=== PATIENT | female | born 1990 | race Two or more races ===

== ENCOUNTER 2020-12-23 11:00 | Outpatient (RCR) | payer OTHER, SELFPAY ==
[2020-11-05 15:08] VITALS: BP 131/84; PULSE 84; RESP 12
== END 2021-02-16 09:58 | disposition other institution (70) ==
LOC: HO.PT 11:00
PROVIDERS: PCP Family Medicine; Visit Provider Family Medicine
DX: M54.6 Pain in thoracic spine (principal)
CPT/HCPCS: 97014; 97110; 97112; 97140; 97161; 97530

== ENCOUNTER 2021-02-16 08:56 | Outpatient (REF) | payer MEDICAID, SELFPAY ==
--- NOTE | ~2021-02-16 | MR_ITS ---
EXAMINATION: BRAIN MRI WITHOUT CONTRAST CLINICAL INFORMATION: Headaches. COMPARISON: No relevant prior imaging. TECHNIQUE: Multiplanar MR imaging of the brain was performed without contrast. FINDINGS: There is no intracranial mass effect or midline shift. No abnormal extra-axial collection. Lateral and third ventricles are normal. No hydrocephalus. Midline structures including the cervicomedullary junction are normal. No acute bone marrow signal changes. There is no acute territorial infarct. No pathological magnetic susceptibility artifact. Intracranial vascular flow voids are maintained. There is no mastoid middle ear effusion. Mild paranasal sinus disease primarily affecting the ethmoid air cells. Globes and orbits are symmetric. MR/MR head/brain wo con IMPRESSION: Unremarkable brain MRI.
--- NOTE | ~2021-02-16 | MR_ITS ---
EXAMINATION: MR SHOULDER WITHOUT CONTRAST, LEFT CLINICAL INFORMATION: Left shoulder pain. COMPARISON: Left shoulder radiographs dated 07/12/2019. TECHNIQUE: Multisequence MR imaging of the left shoulder was obtained without contrast on a high-field strength scanner. FINDINGS: ROTATOR CUFF: [id number] supraspinatus and infraspinatus tendinosis without a measurable rotator cuff tendon defect. No muscle atrophy or fatty infiltration. BICEPS: Normal. CORACOACROMIAL ARCH: The undersurface of the acromion is minimally curved with mild lateral downsloping. Minimal acromioclavicular osteoarthritis. Trace fluid within the subacromial-subdeltoid bursa, consistent with minimal bursitis. LABRUM/CAPSULE: Normal. GLENOHUMERAL JOINT/MARROW: Normal. MR/MR shoulder LT wo con IMPRESSION: 1. [id number] supraspinatus and infraspinatus tendinosis without a measurable tendon defect. 2. Minimal acromioclavicular osteoarthritis with lateral downsloping of the acromion. 3. Minimal subacromial-subdeltoid bursitis.
== END 2021-02-16 08:57 | disposition home or self-care (01) ==
LOC: HO.MRI 08:56
PROVIDERS: Visit Provider Family Medicine
DX: R51.9 Headache, unspecified (principal); M25.512 Pain in left shoulder
CPT/HCPCS: 70551; 73221

== ENCOUNTER → 2021-03-03 10:57 | Outpatient (BNVA) | payer MEDICAID, SELFPAY | PROVIDERS: Visit Provider Orthopaedic Surgery | DX: M25.311 Other instability, right shoulder (principal); M25.312 Other instability, left shoulder | CPT/HCPCS: 99202 ==

== ENCOUNTER 2022-02-26 20:33 | Emergency (ER) | payer MEDICAID, SELFPAY ==
[2022-02-26 20:51] VITALS: BP 149/88; PULSE 88; RESP 18; TEMP 36.4; O2SAT 99; BMI 26.4
--- NOTE | 2022-02-26 21:32 | ED_ITS ---
HPI - Allergic Reaction General Chief complaint: Allergic Reaction Stated complaint: allergic reaction Source: patient Mode of arrival: ambulatory Limitations: no limitations History of Present Illness HPI narrative: 31-year-old female presents with full body itching that started on . Unknown what is causing her allergic reaction as she has not been exposed to any new products or eaten any new foods. She took Benadryl yesterday which did not relieve her itching. MD complaint: allergic reaction Onset (ago): day(s) (3) Exposure: unknown Symptoms: itching Severity: moderate Treatment prior to arrival: benadryl Previous Allergic Reaction History: none Related Data Previous Rx's Medication Instructions Recorded prednisone 20 mg tablet 40 mg PO DAILY 6 Days #12 tab 02/26/22 Allergies Allergy/AdvReac Type Severity Reaction Status Date / Time No Known Allergies Allergy Verified 02/26/22 20:51 Review of Systems Review of Systems: Constitutional: No Fever, No Chills ENT/Mouth: No Ear Pain, No Hoarseness, No sore throat Eyes: No Eye Pain, No Swelling, No Redness, No Foreign Body Cardiovascular: No Chest Pain, No SOB Respiratory: No Cough, No Dyspnea Gastrointestinal: No Nausea, No Vomiting, No Diarrhea, No abdominal Pain Genitourinary: No Dysuria, No Hematuria Musculoskeletal: No joint pain, No Myalgias, No Joint Swelling Skin: No Skin lacerations, positive rash Neuro: No Weakness, No Numbness, No Paresthesias, No Loss of Consciousness, No Dizziness, No Headache Psych: No Anxiety/Panic, No Depression Heme/Lymph: no easy bruising, no Lymphadenopathy Endocrine: No Polyuria, No Polydipsia Yes all other systems are reviewed and are negative [facility] Past Medical History Attestation statement: The following information was validated with the patient. Source: old records reviewed Social History Social History Alcohol intake: never Advance Directives: No Advance Directives Information Provided: Yes Patient : No Current occupational status: unemployed Current occupation: right handed Physical Exam ED Vital Signs: Vital Signs - 24 hr 02/26/22 20:51 Temperature 97.6 F Pulse Rate 88 Respiratory Rate 18 Blood Pressure 149/88 H Pulse Oximetry 99 BMI result Body Mass Index 26.4 Appearance: Alert. Oriented X3. No acute distress. Eyes: Pupils equal, round and reactive to light. ENT: Pharynx normal. Neck: Normal inspection. Neck supple. CVS: Normal heart rate and rhythm. Pulses normal. Respiratory: No respiratory distress. Lung sounds clear to auscultation all lobes. No tracheal stridor. Abdomen: Soft and nontender. Skin: Erythema and diffuse rash noted chest and abdomen. Skin warm and dry. Normal skin color. Normal skin turgor. Extremities: No lower extremity edema. Gait well-balanced well coordinated. Neuro: No motor deficit. No sensory deficit. Cranial nerves 2-12 intact. Course Course Course Narrative: 31-year-old female presents with urticaria to chest neck and abdomen. Has had rash for approximately 3 days. Unknown what the allergen is. Has been taking Benadryl with poor effect. Patient has even unlabored respirations, no tracheal stridor, able to manage secretions. Speaking in complete sentences, even unlabored respirations, vital signs are stable and within normal limits. Will order p.o. prednisone. Will have patient follow-up with primary care physician for allergy testing. Patient verbalized understanding of and agrees to plan of care to discharge home. Verbalized understanding of signs and symptoms indicating need for emergent intervention MDM - Allergic Reaction Differential Diagnosis Differential diagnosis: Likely allergic reaction, contact dermatitis, viral enanthem and urticaria Medical Records Attestation: I reviewed the patient's medical records. Discharge Plan Discharge Clinical Impression: Allergic reaction, Urticaria Patient Disposition: Home, Self-Care Instructions: Urticaria (ED), General Allergic Reaction (ED) Additional Instructions: You were evaluated for allergic reaction. You must follow-up with your primary care for allergy testing. Please take prednisone 40 mg for the next 6 days. Start this medication on 02/27/2022. We gave you your 1st dose in the emergency department. Please continue to take Benadryl as needed for itching. Please follow-up with primary care physician and/or dermatology for skin check. Have the moles looked at on the left side and left arm. Thank you for choosing this emergency department for evaluation. Please follow-up with primary care physician as needed. Return to the emergency department for any new, concerning, or worsening symptoms. Prescriptions: New prednisone 20 mg tablet 40 mg PO DAILY 6 Days Qty: 12 0RF Referrals: Jayla Prather MD [Primary Care Provider] - Interventions: ED Discharge Assessment Last Done: 02/26/22 22:28 Discharge Date/Time: 02/26/22 22:30
[2022-02-26] MEDS: predniSONE 20 MG TABLET 40 MG PO (22:24)
== END 2022-02-26 22:30 | disposition home or self-care (01) ==
PROVIDERS: Emergency Provider Internal Medicine; PCP Family Medicine
DX: L50.0 Allergic urticaria (principal)
CPT/HCPCS: 99283

== ENCOUNTER → 2022-04-15 15:41 | Outpatient (BNVA) | payer MEDICAID, SELFPAY | PROVIDERS: PCP Family Medicine; Visit Provider Internal Medicine Endocrinology, Diabetes & Metabolism | DX: R79.89 Other specified abnormal findings of blood chemistry (principal) | CPT/HCPCS: 99202 ==

== ENCOUNTER 2023-07-04 15:23 | Outpatient (REF) | payer SELFPAY ==
--- NOTE | ~2023-07-04 | XR_ITS ---
EXAMINATION: XR HIP, RIGHT CLINICAL INFORMATION: Right hip pain, worsening. COMPARISON: None available. TECHNIQUE: Two views of the right hip. FINDINGS: No fracture or dislocation. The hip is well aligned. Joint space maintained. The right hemipelvis is intact. Normal bowel gas pattern. XR/XR hip RT min 2V IMPRESSION: Normal right hip.
== END 2023-07-04 15:24 | disposition home or self-care (01) ==
LOC: HO.HHCX 15:23
PROVIDERS: Visit Provider Family Medicine
DX: M25.551 Pain in right hip (principal)
CPT/HCPCS: 73502

== ENCOUNTER 2023-08-04 07:55 | Outpatient (AMB) | payer OTHER, SELFPAY ==
--- NOTE | 2023-08-04 08:04 | MHC.OFFVIS ---
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 She describes her pain as sharp in nature. She did injure her right shoulder approximately 1 year ago while lifting a heavy object. Since that time her symptoms have gotten worse. She has done physical therapy for 12 weeks over the last 6 months which aggravated her pain. She has also tried Tylenol and anti-inflammatory medicines which gave her minimal relief. She has had cortisone injections in the past which gave her no relief. Patient reports weakness when lifting the right hand above shoulder height. 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 Physical Exam Const Other: Well-nourished well-developed very friendly female awake alert and oriented x3 in no acute distress Extrem Other: Bilateral upper extremity examination shows good capillary refill, no skin lesions noted, normal sensation light touch Right shoulder examination shows almost full range of motion when compared to her left shoulder, 4+ out of 5 strength with supraspinatus testing, positive impingement signs, tenderness over her acromioclavicular joint Results Reviewed Results Reviewed: X-rays of the patient's right shoulder show severe acromioclavicular joint narrowing, a type 2 acromion, no acute bony abnormalities Assessment & Plan Assessment & Plan (1) Impingement of right shoulder: Code(s): M25.811 - Other specified joint disorders, right shoulder Plan: Ms. Omar Watts presents with right shoulder pain and weakness due to impingement syndrome, acromioclavicular joint arthritis and possible rotator cuff tearing. Thus, I will send the patient for an MRI of her right shoulder to further evaluate the status of her rotator cuff tendons. I will see her back once the MRI is completed to discuss the findings and treatment options. Feel free to call me at any time should questions regarding her orthopedic management arise. Thank you very much for asking me to see this very friendly patient. I spent 22 minutes in reviewing the patient's records and imaging studies, seeing the patient and documenting in the medical record. Orders: Orders MR shoulder RT wo con Today M25.811 - Other specified joint disorders, right shoulder Coding Level of Care Code Est Pt Level 2 (41502) Diagnoses Impingement of right shoulder M25.811
== END 2023-08-04 08:33 | disposition home or self-care (01) ==
PROVIDERS: PCP Family Medicine; Visit Provider Orthopaedic Surgery
DX: M25.811 Other specified joint disorders, right shoulder (principal)
CPT/HCPCS: 99212

== ENCOUNTER → 2023-08-04 07:55 | Outpatient (BNVA) | payer MEDICAID, SELFPAY | PROVIDERS: PCP Family Medicine; Visit Provider Orthopaedic Surgery ==

== ENCOUNTER 2023-09-12 13:05 | Outpatient (REF) | payer OTHER, SELFPAY ==
--- NOTE | ~2023-09-12 | MR_ITS ---
EXAMINATION: MR SHOULDER WITHOUT CONTRAST, RIGHT CLINICAL INFORMATION: Right shoulder pain. COMPARISON: None available. TECHNIQUE: MRI of the shoulder without contrast was performed on a high-field scanner. FINDINGS: ROTATOR CUFF: Lobulated focus of low T1/low T2 signal within the distal aspect of the posterior infraspinatus tendon measuring up to 0.7 cm, consistent with calcific tendinitis. Minimal supraspinatus, infraspinatus, and subscapularis tendinosis. No measurable rotator cuff tendon tear. No muscle atrophy or fatty infiltration. BICEPS: Intact. CORACOACROMIAL ARCH: The undersurface of the acromion is minimally curved with mild lateral downsloping. Minimal acromioclavicular arthrosis. Trace edema within the subacromial-subdeltoid bursa, consistent with minimal bursitis. LABRUM/CAPSULE: No labral tear. Intact joint capsule. GLENOHUMERAL JOINT/MARROW: Unremarkable. MR/MR shoulder RT wo con IMPRESSION: 1. Distal infraspinatus calcific tendinitis. Minimal supraspinatus, infraspinatus, and subscapularis tendinosis. No measurable rotator cuff tendon tear. 2. Minimal acromioclavicular arthrosis with lateral downsloping of the acromion. 3. Minimal subacromial-subdeltoid bursitis.
== END 2023-09-12 13:06 | disposition home or self-care (01) ==
LOC: HO.MRI 13:05
PROVIDERS: PCP Family Medicine; Visit Provider Orthopaedic Surgery
DX: M25.811 Other specified joint disorders, right shoulder (principal)
CPT/HCPCS: 73221

== ENCOUNTER 2023-10-03 08:22 | Outpatient (AMB) | payer OTHER, SELFPAY ==
--- NOTE | 2023-10-03 08:30 | A.OFFVIS_ITS ---
Intake Vital Signs 10/03/23 08:32 Height 5 ft 1 in Intake Visit Reasons: ov- MRI Shoulder RT review Intake Note: Elina is a 32 year old female who presents today for an MRI review of her right shoulder. She reports mild to moderate discomfort along the lateral aspect of her right shoulder. She has done stretching exercises which gave her minimal relief. She reports mild weakness when lifting her right hand above shoulder height. 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 Const Other: Well-nourished well-developed very friendly female awake alert and oriented x3 in no acute distress Extrem Other: Bilateral upper extremity examination shows good capillary refill, no skin lesions noted, normal sensation light touch Right shoulder examination shows almost full range of motion when compared to her left shoulder, 5/5 strength with supraspinatus testing, positive impingement signs, tenderness over her acromioclavicular joint, no instability Results Reviewed Results Reviewed: MRI of the patient's right shoulder shows moderate to severe acromioclavicular joint narrowing, a type 2 acromion, signal change within the supraspinatus tendon most likely due to rotator cuff tendinosis Assessment & Plan Assessment & Plan (1) Impingement of right shoulder: Code(s): M25.811 - Other specified joint disorders, right shoulder Plan Ms. Omar Watts presents with right shoulder pain due to impingement syndrome and acromioclavicular joint arthritis. I had a lengthy discussion with the patient regarding the treatment options. She wishes to hold off on a cortisone injection. I did give her a prescription for a Medrol Dosepak. She will continue with her home stretching program to prevent stiffness. She will follow up with me on an as-needed basis should her symptoms not plateau at an unacceptable level over the next few months. Feel free to call me at any time should questions regarding her orthopedic management arise. I spent 22 minutes in reviewing the patient's records and imaging studies, seeing the patient and documenting in the medical record. Medications: New methylprednisolone (Medrol (Hilario)) PO PER PKG DIR 21 ea 0RF Coding Level of Care Code Est Pt Level 2 (26599) Diagnoses Impingement of right shoulder M25.811
== END 2023-10-03 08:44 | disposition home or self-care (01) ==
PROVIDERS: PCP Family Medicine; Visit Provider Orthopaedic Surgery
DX: M25.811 Other specified joint disorders, right shoulder (principal)
CPT/HCPCS: 99212

== ENCOUNTER → 2023-10-03 08:22 | Outpatient (BNVA) | payer OTHER, SELFPAY | PROVIDERS: PCP Family Medicine; Visit Provider Orthopaedic Surgery ==

== ENCOUNTER 2024-03-11 11:49 | Outpatient (REF) | payer OTHER, SELFPAY ==
[2024-03-11 17:08] LABS: Estimated Average Glucose 114 mg/dL; Hemoglobin A1c % 5.6 % (<6.0)
[2024-03-11 17:24] LABS: TSH reflex Free T4 0.24 uIU/mL (0.32-4.0); Vitamin D 25-OH Total 32.4 ng/mL (>30)
[2024-03-11 19:59] LABS: Free T4 (Free Thyroxine) 1.02 ng/dL (0.71-1.85)
[2024-03-12 09:22] LABS: Hepatitis A Antibody IgG Nonreactive (Nonreactive); ~Hepatitis A Antibody IgG 0.56 S/CO (0.00-0.99)
[2024-03-12 09:23] LABS: HBS Num1 11.15 mIU/mL (0-7.99); HBsAGNum1 0.43 S/CO (0.00-0.99); HIV AB/AG Nonreactive (Nonreactive); HIV Num 1 0.05 S/CO (0.00-0.99); Hepatitis B Core Antibody Nonreactive (Nonreactive); Hepatitis B Surface Antigen Negative (Negative); ~HepC Num1 0.09 S/CO (0.00-0.79); ~Hepatitis C Antibody Nonreactive (Nonreactive)
[2024-03-12 09:48] LABS: Syphilis Screen Nonreactive (Nonreactive)
[2024-03-12 12:55] LABS: HBS Num2 10.87 mIU/mL (0-7.99); HBS Num3 10.64 mIU/mL (0-7.99); ~Hepatitis B Surface Antibody GRAYZONE (Nonreactive)
== END 2024-03-11 11:50 | disposition home or self-care (01) ==
LOC: HO.HHCL 11:49
PROVIDERS: Visit Provider Family Medicine
DX: Z11.3 Encounter for screening for infections with a predominantly sexual mode of transmission (principal); E55.9 Vitamin D deficiency, unspecified; Z83.3 Family history of diabetes mellitus; Z01.84 Encounter for antibody response examination; R00.2 Palpitations
CPT/HCPCS: 36415; 82306; 83036; 84439; 84443; 86704; 86706; 86708; 86780; 86803; 87340; 87389

== ENCOUNTER 2024-03-15 10:24 | Outpatient (REF) | payer OTHER, SELFPAY ==
--- NOTE | ~2024-03-15 | XR_ITS ---
EXAMINATION: XR CERVICAL SPINE XR THORACIC SPINE XR LUMBAR SPINE CLINICAL INFORMATION: Neck pain. Back pain, and lower back pain. COMPARISON: None available. TECHNIQUE: AP, lateral, and open-mouth views of the cervical spine. AP and lateral views of the thoracic spine. AP, lateral, and coned-down view of the lumbar spine. FINDINGS: CERVICAL SPINE: Straightening of the normal cervical lordosis which may be positional or related to muscle spasm. No acute fracture or subluxation. Normal atlantoaxial alignment. No loss of vertebral body or intervertebral disc height. No concerning lytic or blastic osseous lesion. Unremarkable prevertebral soft tissues. No abnormal soft tissue calcification. THORACIC SPINE: Normal vertebral body alignment. The thoracic kyphosis is maintained. No acute fracture or subluxation. No loss of vertebral body or intervertebral disc height. No lytic or blastic osseous lesion. The visualized lungs are clear. LUMBAR SPINE: Normal vertebral body alignment. The lumbar lordosis is maintained. There is Castellvi type IIA transitional anatomy at the lumbosacral junction. No acute fracture or dislocation. No loss of vertebral body height. Mild loss of intervertebral disc height with tiny endplate osteophytes at L5-S1. No concerning lytic or blastic osseous lesion. No abnormal soft tissue calcification. XR/XR thoracic spine 2V IMPRESSION: Cervical spine: Straightening of the normal cervical lordosis which may be positional or related muscle spasm. Thoracic spine: Unremarkable examination. Lumbar spine: Castellvi type IIA transitional anatomy at the lumbosacral junction. Mild degenerative disc disease at L5-S1.
--- NOTE | ~2024-03-15 | XR_ITS ---
EXAMINATION: XR CERVICAL SPINE XR THORACIC SPINE XR LUMBAR SPINE CLINICAL INFORMATION: Neck pain. Back pain, and lower back pain. COMPARISON: None available. TECHNIQUE: AP, lateral, and open-mouth views of the cervical spine. AP and lateral views of the thoracic spine. AP, lateral, and coned-down view of the lumbar spine. FINDINGS: CERVICAL SPINE: Straightening of the normal cervical lordosis which may be positional or related to muscle spasm. No acute fracture or subluxation. Normal atlantoaxial alignment. No loss of vertebral body or intervertebral disc height. No concerning lytic or blastic osseous lesion. Unremarkable prevertebral soft tissues. No abnormal soft tissue calcification. THORACIC SPINE: Normal vertebral body alignment. The thoracic kyphosis is maintained. No acute fracture or subluxation. No loss of vertebral body or intervertebral disc height. No lytic or blastic osseous lesion. The visualized lungs are clear. LUMBAR SPINE: Normal vertebral body alignment. The lumbar lordosis is maintained. There is Castellvi type IIA transitional anatomy at the lumbosacral junction. No acute fracture or dislocation. No loss of vertebral body height. Mild loss of intervertebral disc height with tiny endplate osteophytes at L5-S1. No concerning lytic or blastic osseous lesion. No abnormal soft tissue calcification. XR/XR cervical spine 3V IMPRESSION: Cervical spine: Straightening of the normal cervical lordosis which may be positional or related muscle spasm. Thoracic spine: Unremarkable examination. Lumbar spine: Castellvi type IIA transitional anatomy at the lumbosacral junction. Mild degenerative disc disease at L5-S1.
--- NOTE | ~2024-03-15 | XR_ITS ---
EXAMINATION: XR CERVICAL SPINE XR THORACIC SPINE XR LUMBAR SPINE CLINICAL INFORMATION: Neck pain. Back pain, and lower back pain. COMPARISON: None available. TECHNIQUE: AP, lateral, and open-mouth views of the cervical spine. AP and lateral views of the thoracic spine. AP, lateral, and coned-down view of the lumbar spine. FINDINGS: CERVICAL SPINE: Straightening of the normal cervical lordosis which may be positional or related to muscle spasm. No acute fracture or subluxation. Normal atlantoaxial alignment. No loss of vertebral body or intervertebral disc height. No concerning lytic or blastic osseous lesion. Unremarkable prevertebral soft tissues. No abnormal soft tissue calcification. THORACIC SPINE: Normal vertebral body alignment. The thoracic kyphosis is maintained. No acute fracture or subluxation. No loss of vertebral body or intervertebral disc height. No lytic or blastic osseous lesion. The visualized lungs are clear. LUMBAR SPINE: Normal vertebral body alignment. The lumbar lordosis is maintained. There is Castellvi type IIA transitional anatomy at the lumbosacral junction. No acute fracture or dislocation. No loss of vertebral body height. Mild loss of intervertebral disc height with tiny endplate osteophytes at L5-S1. No concerning lytic or blastic osseous lesion. No abnormal soft tissue calcification. XR/XR lumbar spine 2-3V IMPRESSION: Cervical spine: Straightening of the normal cervical lordosis which may be positional or related muscle spasm. Thoracic spine: Unremarkable examination. Lumbar spine: Castellvi type IIA transitional anatomy at the lumbosacral junction. Mild degenerative disc disease at L5-S1.
== END 2024-03-15 10:25 | disposition home or self-care (01) ==
LOC: HO.HHCX 10:24
PROVIDERS: Visit Provider Internal Medicine
DX: M54.6 Pain in thoracic spine (principal); M54.2 Cervicalgia; M54.50 Low back pain, unspecified; G89.29 Other chronic pain
CPT/HCPCS: 72040; 72070; 72100

== ENCOUNTER 2024-04-01 10:44 | Outpatient (REF) | payer OTHER, SELFPAY ==
[2024-04-01 12:27] LABS: Anion Gap 10 (12-20); Blood Urea Nitrogen 12 mg/dL (9-16); Carbon Dioxide 28 mmol/L (22-29); Chloride 104 mmol/L (96-108); Estimated Glomerular Filt Rate > 60; Glucose Random 145 mg/dL (60-115); Potassium 3.5 mmol/L (3.3-5.1); Sodium 138 mmol/L (135-145)
[2024-04-01 12:37] LABS: Free T4 (Free Thyroxine) 0.96 ng/dL (0.71-1.85); Thyroid Stimulating Hormone 0.13 uIU/mL (0.32-4.0)
[2024-04-02 11:03] LABS: Thyroid Peroxidase Antibodies <1 IU/mL (<9)
== END 2024-04-01 10:45 | disposition home or self-care (01) ==
LOC: HO.HHCL 10:44
PROVIDERS: Internal Medicine; Visit Provider Family Medicine
DX: M54.50 Low back pain, unspecified (principal); G89.29 Other chronic pain; R79.89 Other specified abnormal findings of blood chemistry
CPT/HCPCS: 36415; 80048; 84439; 84443; 86376

== ENCOUNTER 2024-07-04 15:44 | Outpatient (AMB) | payer OTHER, SELFPAY ==
[2024-07-04 15:50] VITALS: BP 110/76; PULSE 83; BMI 28.8
--- NOTE | 2024-07-04 15:50 | A.OFFVIS_ITS ---
Vital Signs 07/04/24 15:50 Height 5 ft 1 in Weight 152 lb 8.958 oz BMI 28.8 BP 110/76 Blood Pressure Location Lt brachial Position Sitting Pulse 83 Pulse Source Pulse Oximeter Intake Visit Reasons: Hyperthyroidism Intake Note: Patient present today for Hyperthyroidism. Flatwork Folder Required: No Accompanied by: Self / Same As Patient Allergies No Known Allergies Allergy (Verified 07/04/24 15:54) Medication List - Last Reconciled 07/04/24 by Justin Sanchez MD diclofenac sodium 1% topical medroxyprogesterone mg IM methylprednisolone (Medrol (Hilario)) PO PER PKG DIR HPI Comments Details: This is a 31-year-old female sent to endocrinology for evaluation of a slightly suppressed TSH level. Free T4 was 1.4 and TSH was 0.35. pt denies any sx of hyperthyroidism such as tremors, wt loss, + palpitations or frequent bm or heat intolerance . She denies any irradiation to the neck. She denies any tenderness in the neck. There is no family history of thyroid disease. Menses have nor been nl. Takes Depo. 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 Thyroid gland measure 15 gms . No nodules or tenderness palpated. There is no cervical adenopathy palpated. Lungs CTA. Heart S1, S2 Reg R/R -M/R/G. Abdominal exam benign. Skin exam reveals absence of dryness or thyroid dermopathy or vitiligo. Nail exam reveals absence of thyroid acropachy or oncholysis. Neurologic exam reveals 2+ reflexes . Muscle Strength is 5/5 proximally. There are no tremors in upper extremities. Assessment & Plan Assessment & Plan (1) Low TSH level: Code(s): R79.89 - Other specified abnormal findings of blood chemistry Plan: This is a 33-year-old female found to have a slightly low TSH level. TSH has remained persistently suppressed. Other possibilities include the presence of mild Graves disease versus toxic nodule versus thyroiditis. She appears to be clinically euthyroid. The plan is to recheck a TSH, free T4, free T3 as well as TRAB antibody and B- HCG. Will also obtain iodine 123 uptake and scan if TSH remains suppressed and antibodies are negative (2) Hyperthyroidism: Code(s): E05.90 - Thyrotoxicosis, unspecified without thyrotoxic crisis or storm Category: Medical Plan: See plan above Orders: Orders Thyroid Stimulating Hormone Today E05.90 - Thyrotoxicosis, unspecified without thyrotoxic crisis or storm Triiodothyronine T3 Free Today E05.90 - Thyrotoxicosis, unspecified without thyrotoxic crisis or storm Free T4 (Free Thyroxine) Today E05.90 - Thyrotoxicosis, unspecified without thyrotoxic crisis or storm Thyrotropin Receptor Antibody Today E05.90 - Thyrotoxicosis, unspecified without thyrotoxic crisis or storm NM thyroid w uptake Today E05.90 - Thyrotoxicosis, unspecified without thyrotoxic crisis or storm HCG Quantitative Today E05.90 - Thyrotoxicosis, unspecified without thyrotoxic crisis or storm Coding Level of Care Code Est Pt Level 3 (66512) Diagnoses Low TSH level R79.89 Hyperthyroidism E05.90
== END 2024-07-04 16:14 | disposition home or self-care (01) ==
PROVIDERS: PCP Family Medicine; Visit Provider Internal Medicine Endocrinology, Diabetes & Metabolism
DX: R79.89 Other specified abnormal findings of blood chemistry (principal); E05.90 Thyrotoxicosis, unspecified without thyrotoxic crisis or storm
CPT/HCPCS: 99213

== ENCOUNTER → 2024-07-04 15:44 | Outpatient (BNVA) | payer OTHER, SELFPAY | PROVIDERS: PCP Family Medicine; Visit Provider Internal Medicine Endocrinology, Diabetes & Metabolism ==

== ENCOUNTER 2024-09-02 10:25 | Outpatient (REF) | payer OTHER, SELFPAY ==
[2024-09-02 12:20] LABS: HCG Quantitative < 2 mIU/mL; Thyroid Stimulating Hormone 0.31 uIU/mL (0.32-4.0)
[2024-09-03 06:59] LABS: Triiodothyronine T3 Free 3.4 pg/mL (2.3-4.2)
[2024-09-05 21:18] LABS: Thyrotropin Receptor Antibody <1.00 IU/L (<=2.00)
== END 2024-09-02 10:26 | disposition home or self-care (01) ==
LOC: HO.HHCL 10:25
PROVIDERS: Visit Provider Internal Medicine Endocrinology, Diabetes & Metabolism
DX: E05.90 Thyrotoxicosis, unspecified without thyrotoxic crisis or storm (principal)
CPT/HCPCS: 36415; 83520; 84439; 84443; 84481; 84702

== ENCOUNTER 2024-10-28 16:21 | Outpatient (REF) | payer OTHER, SELFPAY ==
[2024-10-28 18:36] LABS: Free T4 (Free Thyroxine) 1.04 ng/dL (0.71-1.85); Thyroid Stimulating Hormone 0.82 uIU/mL (0.32-4.0)
== END 2024-10-28 16:22 | disposition home or self-care (01) ==
LOC: HO.HHCL 16:21
PROVIDERS: Visit Provider Internal Medicine Endocrinology, Diabetes & Metabolism
DX: E05.90 Thyrotoxicosis, unspecified without thyrotoxic crisis or storm (principal)
CPT/HCPCS: 36415; 84439; 84443

== ENCOUNTER 2024-11-04 16:20 | Outpatient (AMB) | payer OTHER, SELFPAY ==
--- NOTE | 2024-11-04 16:22 | A.OFFVIS_ITS ---
Vital Signs 11/04/24 16:23 Height 5 ft 1 in Weight 156 lb 4.924 oz BMI 29.5 BP 142/86 H Blood Pressure Location Rt brachial Position Sitting Pulse 73 Pulse Source Pulse Oximeter Intake Visit Reasons: f/u hyperthyroidism-confirmed Intake Note: Patient present today Hyperthyroidism follow up. [employer] Required: No Accompanied by: Self / Same As Patient Allergies No Known Allergies Allergy (Verified 11/04/24 16:24) Medication List - Last Reconciled 11/04/24 by Justin Sanchez MD diclofenac sodium 1% topical medroxyprogesterone mg IM methylprednisolone (Medrol (Hilario)) PO PER PKG DIR HPI Comments Details: This is a 33-year-old female sent to endocrinology for evaluation of a slightly suppressed TSH level. Free T4 was 1.4 and TSH was 0.35. pt denies any sx of hyperthyroidism such as tremors, wt loss, + palpitations or frequent bm or heat intolerance . She denies any irradiation to the neck. She denies any tenderness in the neck. There is no family history of thyroid disease. Menses have nor been nl. Takes Depo. No palpitation , wt loss or tremors . 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 TSH has remained persistently suppressed. Other possibilities include the presence of mild Graves disease versus toxic nodule versus thyroiditis. She appears to be clinically euthyroid. Repeat thyroid function studies were normal The plan is to have the patient returned to the care of her primary care provider and returned back to endocrinology as needed Coding Level of Care Code Est Pt Level 3 (55102) Diagnoses Low TSH level R79.89
[2024-11-04 16:23] VITALS: BP 142/86; PULSE 73; BMI 29.5
== END 2024-11-04 16:32 | disposition home or self-care (01) ==
PROVIDERS: PCP Family Medicine; Visit Provider Internal Medicine Endocrinology, Diabetes & Metabolism
DX: R79.89 Other specified abnormal findings of blood chemistry (principal)
CPT/HCPCS: 99213

== ENCOUNTER → 2024-11-04 16:20 | Outpatient (BNVA) | payer OTHER, SELFPAY | PROVIDERS: PCP Family Medicine; Visit Provider Internal Medicine Endocrinology, Diabetes & Metabolism ==

== ENCOUNTER 2025-02-11 11:22 | Outpatient (REF) | payer SELFPAY ==
--- OUTSIDE RECORDS SUMMARY | 2025-02-11 13:41 | XMS_ITS | Encounter Summary ---
Author Organization [employer] Address [address] [place] [address] 7 [place] [address] Care Team Providers Care Herd Tester Name Role Phone Jayla Prather MD Primary Care Provider [phone] Encounter Details Date Type Department Care Team (Late st Contact Info) Description 09/20/2022 Abstract [facility] [address] [place] [address] ProviderAgata MD Social History Tobacco Use Types Packs/Day Years Used Date Smoking Tobacco: Never Assessed Comments Unknown Sex and Gender Information Value Date Recorded Sex Assigned at Female 08/22/2022 10:18 AM EDT Legal Sex Female 10:18 AM EDT Gender Identity Female 08/22/2022 10:18 AM EDT Sexual Orientation Choose not to disclose 2021 10:18 AM EDT documented as of this encounter Plan of Treatment Upcoming Encounters Date Type Department Care Team (Late st Contact Info) Description 02/21/2025 10:30 AM EDT Clinical Support [address] [address] 03/11/2025 10:30 AM EDT Office Visit [address] [address] Jayla Prather MD [address] [place] [phone] documented as of this encounter Visit Diagnoses Not on filedocumented in this encounter Care Teams Herd Tester Relationship Specialty Start Date End Date Jayla Prather MD [address] [place] [phone] PCP - General Family Medicine 10/23/18 documented as of this encounter
--- OUTSIDE RECORDS SUMMARY | 2025-02-11 13:41 | XMS_ITS | Clinical Summary ---
Author Organization [employer] Address [address] [facility] [address] [place] [address] Care Team Providers Care Shoe Dyer Name Role Phone Jayla Prather MD Primary Care Provider Allergies No known active allergies Medications medroxyPROGESTERo ne (Depo-Provera) 150 MG/ML injectionIndicati ons:Depo-Provera contraceptive status Administer 150 mg IM every 3 months 1 mL 4 02/23/20 23 Active medroxyPROGESTERo ne (Depo-Provera) 150 MG/ML injectionIndicati ons:Depo-Provera contraceptive status TAKE TO DOCTOR'S OFFICE FOR ADMINISTRATION EVERY 3 MONTHS 1 mL 3 11/19/19 25 Active medroxyPROGESTERo ne (Depo-Provera) 150 MG/ML injectionIndicati ons:Encounter for contraceptive management, unspecified type Inject 1 mL (150 mg) into the muscle every 3 (three) months. 1 mL 3 11/22/19 25 Active [facility] every morning or as directed 1 each 12/24/19 25 Active Diclofenac Sodium 1 % gel Apply to affected areas once or twice daily as needed for pain 100 g 1 12/24/19 25 Active cholecalciferol (D3-1000) 25 MCG (1000 UT) capsuleIndication s:Vitamin deficiency Take 1 capsule (25 mcg) by mouth Once per day. 90 capsule 3 12/24/19 25 Active Hospital, Clinic, or Other Facility Administered Medication Ordered Dose Route Frequency Start Date End Date Status medroxyPROGESTERone (Depo-Provera) injection 150 mgIndications:Encounte r for contraceptive management, unspecified type 150 mg IM Every 3 months 11/22/2024 11/17/2025 Acti ve Active Problems Problem Noted Date Diagnosed Date Depression 12/28/2024 Assessment & Plan (12/28/2024 6:48 AM EST): - PHQ9 score 8, GAD7 score 2 - her depression symptoms seem to be manifesting as somatic symptoms - discussed about having therapist for unresolved grief (her trauma and loss of her mother) - patient was able to contract her safety today Elevated BP without diagnosis of hypertension Assessment & Plan (12/28/2024 6:49 AM EST): -Goal BP < 140/90 per JNC-8 and < 130/80 per ACC/AHA guideline (Treatment threshold >=140/90) -Her BP in the clinic is always borderline range -Continue working on lifestyle modifications -Recommended self-monitoring BP. -Follow up in 3-6 mo, sooner if any problem arises - Pt was advised to take home a BP machine. She has FMx of hypertension. 12/23/24 - She is currently on Depo-Provera and will return for BP chek in two months. 12/23/24 Subclinical hyperthyroidism 04/02/2024 Overview (04/02/2024): Referred to assembler wire group Assessment & Plan (12/28/2024 7:03 AM EST): - mildly low TSH - evaluated by [employer] [employer], last seen in Oct 2024 - discharged to primary care as she does not need any medication at this time - continue periodic monitoring Chronic midline low back pain without sciatica 0 03/11/2024 Assessment & Plan (12/28/2024 6:44 AM EST): - last X-ray in February 2024 showed: Castellvi type IIA transitional anatomy at the lumbosacral junction. Mild degenerative disc disease at L5-S1. - continue home stretching exercise program, heat, and topical medication Chronic midline thoracic back pain 03/11/2024 Assessment & Plan (12/28/2024 6:42 AM EST): >>ASSESSMENT AND PLAN FOR THORACIC BACK PAIN WRITTEN ON 03/11/2024 8:07 PM BY ROMELIA SIMONS MD See above Assessment & Plan (12/28/2024 6:43 AM EST): - X-ray was normal in February 2024 - the same plan as for neck pain Neck pain 03/11/2024 Assessment & Plan (12/28/2024 6:29 AM EST): - X-ray in February 2024 - worsened by her occupation - continue practicing good posture, massage, heat, home stretching exercise as needed - continue diclofenac gel Assessment & Plan (12/28/2024 6:22 AM EST): >>ASSESSMENT AND PLAN FOR CERVICAL RADICULOPATHY WRITTEN ON 03/11/2024 8:07 PM BY ROMELIA SIMONS MD Ro meningeal pathology/ ?cord compression? Rx gabapentin 100mg at bedtime, titrate 100mg/w up to 300mg at bedtime + 100mg qam , hold for sedation. Order MRI entire spine, fu with PCP. Family history of diabetes mellitus 04/17/2023 Assessment & Plan (12/28/2024 6:41 AM EST): - annual screening Overweight 04/17/2023 Assessment & Plan (12/23/2024 2:42 PM EST): - discussed that exercising and eating healthier are more important that the actual weight / BMI Assessment & Plan (04/18/2023 6:19 AM EDT): - discussed that exercising and eating healthier are more important that the actual weight / BMI Chronic right shoulder pain 09/27/2022 Overview (09/27/2022): -Evaluated by orthopedist. MRI done. Tried PT. -Appropriate use and rest of R hand / arm. Ergonomic support. -Continue topical diclofenac prn. Assessment & Plan (12/23/2024 10:45 AM EST): - Pt was last evaluated by Orthopedist on Sep 2023. She was offered steroid injections but patient declined. 12/23/24 - Pt states her pain is currently tolerable. Pt will continue with Diclofenac Gel. 12/23/24 Assessment & Plan (07/29/2023 6:24 AM EDT): -Evaluated by orthopedist. MRI done. Tried PT. Pt declines to try PT again -Appropriate use and rest of R hand / arm. Ergonomic support. -Continue topical diclofenac prn. -Encouraged home exercise. -Refer to orthopedist Assessment & Plan (04/18/2023 6:20 AM EDT): -Evaluated by orthopedist. MRI done. Tried PT. Pt declines to try PT again -Appropriate use and rest of R hand / arm. Ergonomic support. -Continue topical diclofenac prn. -Encouraged home exercise. Assessment & Plan (09/27/2022 9:04 AM EST): -Evaluated by orthopedist. MRI done. Tried PT. -Appropriate use and rest of R hand / arm. Ergonomic support. -Continue topical diclofenac prn. Health care maintenance 09/27/2022 Overview (09/27/2022): -Intimate Partner Violence screen negative -PAP done today. Hx abnormal PAP. -Breast health: Average risk for breast cancer. Screening per guideline Assessment & Plan (12/28/2024 6:41 AM EST): -last physical exam 12/23/24 -Intimate Partner Violence screen negative -Cervical cancer screenin09/27/22 PAP NILM Hx abnormal PAP. -Breast health: Average risk for breast cancer. Screening per guideline -Family Planning / Contraception: Depo-Provera -Dental care: Discussed -IZ: Pt declined Tdap/Td, flu, and COVID vaccine today Assessment & Plan (04/18/2023 6:18 AM EDT): -Intimate Partner Violence screen negative -Cervical cancer screenin09/27/22 PAP NILM Hx abnormal PAP. -Breast health: Average risk for breast cancer. Screening per guideline -Family Planning / Contraception: Depo-Provera -Dental care: Discussed -IZ: Pt declined Tdap/Td and COVID vaccine today -Discussed about the importance of practicing healthy lifestyle Assessment & Plan (09/27/2022 9:05 AM EST): -Intimate Partner Violence screen negative -PAP done today. Hx abnormal PAP. -Breast health: Average risk for breast cancer. Screening per guideline Vitamin D deficiency 09/20/2022 Assessment & Plan (12/23/2024 2:41 PM EST): - Pt was seen by [facility] [facility] [employer] for hyperthyroidism. Pt was given reassurance and will be monitored periodically. 12/23/24 - She has Vitamin D deficiency she is on Depo-Provera. 12/23/24 - Currently taking Vitamin D supplements and will resume. 12/23/24 Headache 09/20/2022 Assessment & Plan (12/28/2024 6:45 AM EST): - MRI on 02/16/21 normal - well-controlled at this time - sleep hygiene Assessment & Plan (04/18/2023 6:22 AM EDT): - well-controlled at this time - sleep hygiene History of abnormal cervical Papanicolaou smear 09/20/2022 Assessment & Plan (12/28/2024 6:39 AM EST): - LSIL / VLADISLAV-1 in 2010 - Last cotest in Sep 2022, NILM with negative high-risk HPV Depo-Provera contraceptive status 09/20/2022 Resolved Problems Problem Noted Date Diagnosed Date Resolved Date Right hip pain 07/04/2023 12/23/2024 Assessment & Plan (07/29/2023 6:23 AM EDT): - possible trochanteric bursitis - pt cannot commit to PT, but will work on home exercise program - continue judicious use of ibuprofen - refer to orthopedist Palpitation 09/27/2022 12/23/2024 Overview (09/27/2022): -Hx abnormal TSH -Repeat thyroid function test -Holter monitor in 2017 was mostly normal sinus rhythm; consider repeat study if persistent Assessment & Plan (04/18/2023 6:21 AM EDT): -Improved -Hx abnormal TSH -Repeat thyroid function test -Holter monitor in 2017 was mostly normal sinus rhythm; consider repeat study if she develops recurrent symptom Assessment & Plan (09/27/2022 9:04 AM EST): -Hx abnormal TSH -Repeat thyroid function test -Holter monitor in 2017 was mostly normal sinus rhythm; consider repeat study if persistent Encounters Date Type Department Care Team Description 02/07/[address] [address] Jayla Prather MD Nurse Triage 01/22/[address] [address] Jayla Prather MD 12/23/2024 9:30 AM EST Office Visit [address] [address] Jayla Prather MD Encounter for contraceptive management, unspecified type (Primary Dx); Vitamin D deficiency; Overweight; Elevated BP without diagnosis of hypertension; Chronic right shoulder pain; Subclinical hyperthyroidism; Vitamin deficiency; Dietary counseling; Exercise counseling; Neck pain; Chronic thoracic back pain, unspecified back pain laterality; History of abnormal cervical Papanicolaou smear; Health care maintenance; Family history of diabetes mellitus; Depo-Provera contraceptive status; Chronic midline thoracic back pain; Chronic midline low back pain without sciatica; Nonintractable episodic headache, unspecified headache type; Major depressive disorder, remission status unspecified, unspecified whether recurrent; Routine screening for STI (sexually transmitted infection); Screening for lipid disorders; Screening for diabetes mellitus 12/23/2024 Travel 12/22/2024 Travel 12/18/[address] [address] Daina Muñoz MA chart prep 12/10/2024 Patient Outreach [address] [address] Jayla Prather MD Pre-visit Planning (SDOH Screening negative and Tobacco screening negative) 11/22/2024 10:30 AM EST Clinical Support [facility] [address] [place] [address] Lyly Ackerman RN Encounter for contraceptive management, unspecified type; Depo-Provera contraceptive status 11/22/2024 Travel 11/18/2024 Refill [facility] [address] [place] [address] Jayla Prather MD Depo-Provera contraceptive status 11/15/2024 Travel from Last 3 Months Immunizations Name Administration Dates Next Due DTP 01/20/1995, 2,01/20/1991,1989,04/23/1990 DTaP 11/27/2002, 5,12/23/1991,1990,04/23/1990,1989 HPV, Quadrivalent 08/23/2009,09/24/2008 Hep B, Adolescent or Pediatric 06/13/2003,2002,11/27/2002 Hib (HbOC) 04/22/1991,12/21/1990 Hib (PRP-T) 05/22/1991,01/20/1991 IPV 01/20/1995, 5,01/21/1992,1991,01/20/1991,12/22/1990,04/22/1990 Influenza injectable quadriv alent IIV4 with preservative 07/24/2018 Influenza injectable quadriv alent preservative free 11/21/2016 Influenza, IIV3, injectable 07/29/2011 MMR 01/20/1995, 5,05/22/1991,1990 Pfizer Covid-19 Vaccine 12+ 12/21/2021, 2 TD (adult), 2 Lf tetanus tox oid, preservative free, adsorbed 11/27/2002 Tdap 03/08/2013 Varicella 02/28/2011,11/27/2002 Family History Medical History Relation Name Comments Depression Mother Drea Diabetes type II Mother Drea HIV Mother Drea Hypertension Mother Drea Substance use disorder Mother Drea opioid use disorder Sister Relation Name Status Comments Mother Drea Sister Social History Tobacco Use Types Packs/Day Years Used Date Smoking Tobacco: Never Passive Smoke Exposure: Never Smokeless Tobacco: Never Tobacco Cessation:Counseling Given: Not Answered Alcohol Use Standard Drinks/Week Comments Never 0 (1 standard drink = 0.6 oz pur e alcohol) Alcohol Answer Date Recorded How often do you have a drink containing alcohol ? 2 12/23/2024 Average Number of Drinks Not on file 025 Frequency of Binge Drinking Not on file 12/2024 Depression Answer Date Recorded Patient Health Questionnaire-9 Score 8 12/23/2024 Patient Health Questionnaire-9 Score 8 12/23/2024 Last PHQ-9: Questionnaire Data Not on file 0 12/23/2024 Housing Stability Answer Date Recorded What is your housing situation today? I have maren kumari 12/10/[address] you li ve. Do you have problems with any of the following? None of the above 12/10/2024 Food Insecurity Answer Date Recorded Within the past 12 months, y ou worried that your food would run out before you got money to buy more: Never True 12/10/2024 Within the past 12 months,th e food you bought just didn't last and you didn't have enough money to get more: Never True Transportation Answer Date Recorded In the past 12 months, has l ack of transportation kept you from medical appts, meetings, work or from getting things needed for daily living? No 12/10/2024 Utilities Answer Date Recorded In the past 12 months, has t he electric, gas, oil or water company threatened to shut off services in your home? No 12/10/2024 Depression Answer Date Recorded Patient Health Questionnaire-2 Score 4 12/23/2024 Internet Access Answer Date Recorded Internet Access Q1 Yes 12/10/2024 Internet Access Q2 Not on file 12/10/2024 Comments Unknown Sex and Gender Information Value Date Recorded Sex Assigned at Female 08/22/2022 10:18 AM EDT Legal Sex Female 10:18 AM EDT Gender Identity Female 08/22/2022 10:18 AM EDT Sexual Orientation Choose not to disclose 2021 10:18 AM EDT Last Filed Vital Signs Vital Sign Reading Time Taken Comments Blood Pressure 142/84 12/23/2024 9:52 AM EST Pulse 80 12/23/2024 9:32 AM EST Temperature 37.2 ??C (98.9 ??F) 12/23/2024 9:32 AM ES T Respiratory Rate 18 12/23/2024 9:32 AM EST Oxygen Saturation 98% 12/23/2024 9:32 AM EST Inhaled Oxygen Concentration - - Weight 69.9 kg (154 lb) 12/23/2024 9:32 AM EST Height 154.9 cm (5' 1 ) 12/23/2024 9:32 AM EST Body Mass Index 29.1 12/23/2024 9:32 AM EST Plan of Treatment Upcoming Encounters Date Type Department Care Team (Late st Contact Info) Description 02/21/2025 10:30 AM EDT Clinical Support [facility] [address] [place] [phone] 03/11/2025 10:30 AM EDT Office Visit [facility] [address] [place] [phone] Jayla Prather MD [address] [place] [phone] Health Maintenance Due Date Last Done Comments HPV Vaccines (3 - 3-dose series) 11/15/2009 08/23/2009, 09/24/2008 DTaP/Tdap/Td Vaccines (9 - Td or Tdap) 03/08/2023 03/08/2013, 11/27/2002, 11/27/2002, Additional history exists COVID-19 Vaccine ( season) 2024 12/21/2021, 2021 Influenza Vaccine (#1) 2024 8, 11/21/2016, 07/29/2011 SDOH Screening 12/10/2025 12/10/2024 Alcohol/Substance Use Screening 12/23/2025 12/23/2024 Depression Screening 12/23/2025 12/23/2024, 12/24/19 25 Tobacco Screening 12/23/2025 12/23/2024 Family Planning (PISQ) 12/28/2025 12/28/2024 Cervical Cancer Screening 09/29/2027 HPV/Cotest 09/29/2027 09/29/2022, 120 02/2022, 08/27/2019 Pap Smear 09/29/2027 09/29/2022, 09/26/2022 Zoster Vaccines (1 of 2) 2039 RSV Patients and Patients Aged 60 years or older (1 - 1-dose 75+ series) 2064 HIB Vaccines Completed 05/22/1991, 0 10/1990, 01/20/1991, Additional history exists IPV Vaccines Completed 01/20/1995, 11/1994, 01/21/1992, Additional history exists Hepatitis B Vaccines Completed 06/13/2003, 12/30/2002, 11/27/2002 HIV Screening Completed 03/11/2024, 03/24, 10/20/2020 Hepatitis C Screening Completed 03/11/2024, 020 Hepatitis A Vaccines Aged Out No long er eligible based on patient's age to complete this topic Meningococcal Vaccine Aged Out No aman remberto eligible based on patient's age to complete this topic Pneumococcal Vaccine: Pediatrics (0 to 5 Years) and At-Risk Patients (6 to 49) Years) Aged Out No longer eligible based on patient's age to complete this topic RSV under 20 months Aged Out No longe r eligible based on patient's age to complete this topic Rotavirus Vaccines Aged Out No longer eligible based on patient's age to complete this topic Procedures Procedure Name Priority Date/Time Associated Diagnosis Comments HEPATITIS C AB W/REFL TO HCV RNA, QN, PCR Routine 03/11/2024 12:00 AM EDT Routine screening for STI (sexually transmitted infection) HIV 1/2 ANTIGEN/ANTIBODY, FOURTH GENERATION W/RFL Routine 03/11/2024 12:00 AM EDT Routine screening for STI (sexually transmitted infection) HM PAP/HPV Routine 09/29/2022 from Last 3 Months or Most Recently Relevant to Health Maintenance Results * Hepatitis C Antibody with Reflex to HCV, RNA, Quantitative, Real-Time PCR (03/11/2024 12:00 AM EDT) Hepatitis C Antibody Nonreactive Nonreactive [facility] Comment:Antibodies to HCV no t detected; does not exclude early acuteHCV infection. Blood Venous blood specimen / Unknown 03/11/2024 03/11/2024 Jayla Prather MD LAB BLOOD ORDERABLES Final Resul t Performing Organization Address City/[facility]/ZIP Co de Phone Number [facility] [address] [place] [address] [phone] * HIV-1/2 Antigen and Antibodies, Fourth Generation, with Reflexes (03/11/2024 12:00 AM EDT) HIV AB/AG Nonreactive Nonreactive [facility] Comment:HIV-1 p24 Ag and/or HIV-1/HIV-2 Ab not detected.A test result that is nonreactive does not exclude thepossibility of exposure to or infection with HIV-1 and/orHIV-2. Nonreactive results in this assay for individualswith prior exposure to HIV-1 and/or HIV-2 may be due toantigen and antibody levels that are below the limit ofdetection of this assay.The [employer] HIV Ag/Ab Combo assay result andsupplemental assay results should be interpreted inconjunction with the patient's clinical presentation,history and other laboratory results. If the results areinconsistent with clinical evidence, additional testing issuggested to confirm the result. Blood Venous blood specimen / Unknown 03/11/2024 03/11/2024 Jayla Prather MD LAB BLOOD ORDERABLES Final Resul t Performing Organization Address City/[facility]/ZIP Co de Phone Number [facility] [address] [place] [address] [phone] * Hm Pap Smear (09/29/2022) Pap Negative for intraephithelial lesion or malignancy Negative for intraephithelial lesion or malignancy, Other HPV Undetected Jayla Prather MD HEALTH MAINTENANCE Final Result from Last 3 Months or Most Recently Relevant to Health Maintenance Insurance * Guarantor: Elina Alejandre Account Type Relation to Patient Date of Phone Billing Address Personal/Family Self [address] [place] Care Teams Shoe Dyer Relationship Specialty Start Date End Date Jayla Prather MD [address] [place] [address] PCP - General Family Medicine 10/23/18
--- OUTSIDE RECORDS SUMMARY | 2025-02-11 13:41 | XMS_ITS | Encounter Summary ---
Author Organization [id number] Address [address] [facility] 7t [place] [address] Care Team Providers Care Corn Sheller Operator Name Role Phone Jayla Prather MD Primary Care Provider [phone] Reason for Visit * Reason Onset Date Comments Nurse Triage 06/19/2023 Encounter Details Date Type Department Care Team ([facility] st Contact Info) Description 06/19/2023 Telephone [facility] MEDICINE [address] [place], [place] [phone] Jayla Prather MD [address] [place], [place] [phone] Nurse Triage Social History Tobacco Use Types Packs/Day Years Used Date Smoking Tobacco: Never Passive Smoke Exposure: Never Smokeless Tobacco: Never Alcohol Use Standard Drinks/Week Comments Never 0 (1 standard drink = 0.6 oz pur e alcohol) Depression Answer Date Recorded Patient Health Questionnaire-2 Score 0 09/26/2022 Comments Unknown Sex and Gender Information Value Date Recorded Sex Assigned at Female 08/22/2022 10:18 AM EDT Legal Sex Female 10:18 AM EDT Gender Identity Female 08/22/2022 10:18 AM EDT Sexual Orientation Choose not to disclose 2021 10:18 AM EDT documented as of this encounter Miscellaneous Notes * Telephone Encounter - Deborah Richardson RN - 06/19/2023 11:58 AM EDT Triage call Pt reports chronic right shoulder and now right hip pain is getting worse. PT reports not taking anything for pain. Pt did take ibuprofen once which was helpful but, doesn't like to take pain medication all the time. Pt is having some increased pain with ambulation and mobility is restricted at times. Pt requests to see PCP. Apt with PCP Yamilka 07/04/23 @ 300pm Insurance is verified as active prior to booking. Multiple (2) protocols were used on this call. Disposition for Call: See in Office or Video Visit within 2 Weeks Protocol Used: Shoulder Pain (Adult) Protocol-Based Disposition: See in Office or Video Visit within 2 Weeks Video visit not offered Positive Triage Question: * Shoulder pain is a chronic symptom (recurrent or ongoing AND present > 4 weeks) * All higher-acuity triage questions were negative Care Advice Discussed: * Reassurance and Education - Shoulder Pain * Pain Medicines * Pain Medicines - Extra Notes and Warnings * Reasons To Call Back - Chest pain or difficulty breathing occurs - Moderate pain (e.g., interferes with normal activities) lasts over 3 days - Mild pain lasts over 7 days - You become worse * Use a Cold Pack for Pain * Use Heat on Area After 48 Hours Protocol Used: Hip Pain (Adult) Protocol-Based Disposition: See in Office or Video Visit within 2 Weeks Video visit not offered Positive Triage Question: * Hip pain is a chronic symptom (recurrent or ongoing AND present > 4 weeks) * All higher-acuity triage questions were negative Care Advice Discussed: * Reassurance and Education - Hip Pain * Pain Medicines * Reasons To Call Back - Moderate pain (e.g., limping) lasts more than 3 days - Mild pain lasts more than 7 days - Signs of infection occur (e.g., spreading redness, warmth, fever) - You become worse * Use a Cold Pack for Pain * Use Heat on Area After 48 Hours * Telephone Encounter - Nehemiah Butt - 06/19/2023 11:35 AM EDT Symptom: Pain - Severe Outcome: Schedule an urgent appointment (within 1 hour) or talk to a nurse or provider soon Reason: Caller denied all higher acuity questions The caller accepted this outcome Pt states she is having hip pain and shoulder pain Please contact pt at [phone] documented in this encounter Plan of Treatment Upcoming Encounters Date Type Department Care Team (Late st Contact Info) Description 02/21/2025 10:30 AM EDT Clinical Support [address] [address] 03/11/2025 10:30 AM EDT Office Visit [address] [address] Jayla Prather MD [address] [place] [phone] documented as of this encounter Visit Diagnoses Not on filedocumented in this encounter Care Teams Corn Sheller Operator Relationship Specialty Start Date End Date Jayla Prather MD [address] [place] [phone] PCP - General Family Medicine 10/23/18 documented as of this encounter
--- OUTSIDE RECORDS SUMMARY | 2025-02-11 13:41 | XMS_ITS | Encounter Summary ---
Author Organization [employer] Address [address] [facility] 7t [place] [address] Care Team Providers Care Slate Splitting Supervisor Name Role Phone Jayla Prather MD Primary Care Provider [phone] Encounter Details Date Type Department Care Team ([facility] Contact Info) Description 03/11/2024 Orders Only [facility] MEDICINE [address] [place], [place] [phone] Jayla Prather MD [address] [place], [place] [phone] Family history of diabetes mellitus (Primary Dx); Vitamin D deficiency; Palpitation; Routine screening for STI (sexually transmitted infection); Immunity status testing; Low TSH level Social History Tobacco Use Types Packs/Day Years Used Date Smoking Tobacco: Never Passive Smoke Exposure: Never Smokeless Tobacco: Never Alcohol Use Standard Drinks/Week Comments Never 0 (1 standard drink = 0.6 oz pur e alcohol) Housing Stability Answer Date Recorded What is your housing situation today? I have maren kumari 08/07/[address] you li ve. Do you have problems with any of the following? None of the above 08/07/2023 Food Insecurity Answer Date Recorded Within the past 12 months, y ou worried that your food would run out before you got money to buy more: Never True 08/07/2023 Within the past 12 months,th e food you bought just didn't last and you didn't have enough money to get more: Never True Transportation Answer Date Recorded In the past 12 months, has l ack of transportation kept you from medical appts, meetings, work or from getting things needed for daily living? No 08/07/2023 Utilities Answer Date Recorded In the past 12 months, has t he electric, gas, oil or water company threatened to shut off services in your home? No 08/07/2023 Depression Answer Date Recorded Patient Health Questionnaire-2 [...] Description 02/21/2025 10:30 AM EDT Clinical Support [facility] MEDICINE [address] [place] [phone] 03/11/2025 10:30 AM EDT Office Visit [facility] MEDICINE [address] [place] [phone] Jayla Prather MD [address] [place] [phone] Scheduled Orders Name Type Priority Associated Diagnoses Orde r Schedule Chlamydia/N. Gonorrhoeae RNA, TMA, Urogenitial Microbiology Routine Routine screening for STI (sexually transmitted infection) Expected: 03/11/2024 (Approximate), Expires: 03/11/2025 documented as of this encounter Procedures Procedure Name Priority Date/Time Associated Diagnosis Comments THYROID PEROXIDASE ANTIBODIES Routine 04/01/2024 10:45 AM EDT Low TSH level TSH Routine 04/01/2024 10:45 AM EDT Low TSH level T4, FREE Routine 04/01/2024 10:45 AM EDT Low TSH level HEMOGLOBIN A1C Routine 03/11/2024 12:11 PM EDT Family history of diabetes mellitus SYPHILIS SCREEN Routine 03/11/2024 11:00 AM EDT Routine screening for STI (sexually transmitted infection) VITAMIN D,25-OH,TOTAL,IA Routine 03/11/2024 12:00 AM EDT Vitamin D deficiency TSH W/REFLEX TO FT4 Routine 03/11/2024 1 2:00 AM EDT Palpitation HEPATITIS C AB W/REFL TO HCV RNA, QN, PCR Routine 03/11/2024 12:00 AM EDT Routine screening for STI (sexually transmitted infection) HEPATITIS A ANTIBODY, TOTAL Routine 03/11/2024 12:00 AM EDT Immunity status testing HEPATITIS B SURFACE ANTIGEN, EIA Routine 03/11/2024 12:00 AM EDT Routine screening for STI (sexually transmitted infection) HEPATITIS B CORE AB TOTAL Routine 03/11/2024 12:00 AM EDT Routine screening for STI (sexually transmitted infection) HIV 1/2 ANTIGEN/ANTIBODY, FOURTH GENERATION W/RFL Routine 03/11/2024 12:00 AM EDT Routine screening for STI (sexually transmitted infection) HEPATITIS B SURFACE ANTIBODY, QUALITATIVE Routine 03/11/2024 12:00 AM EDT Routine screening for STI (sexually transmitted infection) T4, FREE Routine 03/11/2024 12:00 AM EDT Family history of diabetes mellitus documented in this encounter Results * Thyroid Peroxidase Antibodies (04/01/2024 10:45 AM EDT) Thyroid Peroxidase Antibodies <1 <9 IU/mL [facility] Comment:THIS TEST WAS PERFOR MED AT:[employer] [address] [id number] FUNG MD Blood Venous blood specimen / Unknown 04/01/2024 10:45 AM EDT 04/01/2024 11:40 AM EDT us Jayla Prather MD LAB BLOOD ORDERABLES Final Resul t Performing Organization Address [place] [facility] de Phone Number [facility] [address] [place] [phone] * (ABNORMAL) TSH (04/01/2024 10:45 AM EDT) Thyroid Stimulating Hormone 0.13(L) 0.32 - 4.0 uIU/mL [facility] Comment:TSH 3rd Generation ( [facility]) Blood Venous blood specimen / Unknown 04/01/2024 10:45 AM EDT 04/01/2024 11:38 AM EDT Jayla Prather MD LAB BLOOD ORDERABLES Final Resul t Performing Organization Address [facility] Co de Phone Number [facility] [address] [place] [phone] * T4, Free (04/01/2024 10:45 AM EDT) Free T4 (Free Thyroxine) 0.96 0.71 - 1.85 ng/dL [facility] Blood Venous blood specimen / Unknown 04/01/2024 10:45 AM EDT 04/01/2024 11:38 AM EDT Jayla Prather MD LAB BLOOD ORDERABLES Final Resul t Performing Organization Address [place] [facility] Co de Phone Number [facility] [address] [place] [phone] * Hemoglobin A1c (03/11/2024 12:11 PM EDT) Hemoglobin A1c 5.6 <6.0 % [facility] Comment:Hemoglobin A1C Refer ence Range Adults: 4.8 - 6.0 % Non diabetic: < 6.0 % Goal: < 7.0 %Additional Action Suggested: > 8.0 %Note: Hemoglobin A1c results are invalid for patients with abnormal amounts of HbF. Blood transfusions may impact the HbA1c concentration in the patient sample. Estimated Average Glucose 114 mg/dL [facility] Comment:eAG = Estimated ave rage glucose which is %A1C expressed asaverage glucose, using the formula of the H0K-EaasguqGzkakwa Glucose study (ADAG), Diabetes Care, Vol.31,#8,May. 2007 Blood Venous blood specimen / Unknown 03/11/2024 12:11 PM EDT 03/11/2024 4:22 PM EDT Jayla Prather MD LAB BLOOD ORDERABLES Final Resul t Performing Organization Address [place] [facility]/ZIP Co de Phone Number [facility] [address] [place] [phone] * Syphilis Screen (03/11/2024 11:00 AM EDT) Syphilis Screen Nonreactive Nonreactive [facility] Blood 03/11/2024 11:0 0 AM EDT 03/11/2024 4:22 PM EDT Jayla Prather MD LAB BLOOD ORDERABLES Final Resul t Performing Organization Address [place] [facility] Co de Phone Number [facility] [address] [place] [phone] * T4, Free (03/11/2024 12:00 AM EDT) Free T4 (Free Thyroxine) 1.02 0.71 - 1.85 ng/dL [facility] 03/11/2024 03/11/2024 Jayla Prather MD LAB BLOOD ORDERABLES Final Resul t Performing Organization Address [place] [facility] Co de Phone Number [facility] [address] [place] [phone] * (ABNORMAL) TSH with Reflex to Free T4 (03/11/2024 12:00 AM EDT) TSH reflex Free T4 0.24(L) 0.32 - 4.0 uIU/mL [facility] Blood 03/11/2024 03/11/2024 Jayla Prather MD LAB BLOOD ORDERABLES Final Resul t Performing Organization Address [place] [facility] Co de Phone Number [facility] [address] [place] [phone] * Vitamin D, 25-Hydroxy, Total, Immunoassay (03/11/2024 12:00 AM EDT) Vitamin D 25-OH Total 32.4 >30 ng/mL [facility] Comment:Health Based Referen ce Values*< 20 ng/mL Okbhxfxfx38-69 ng/mL Insufficient> 30 ng/mL Sufficient*Ollie BONNER. N Engl J Med. 2007;357:266-280Care must be taken in interpreting Vitamin D results fromdifferent laboratories and methodologies. Published datademonstrated that results from patients undergoinghemodialysis may show a negative bias when tested withvarious automated 25-OH vitamin D assays when compared toLC-MS/MS.When testing samples from patients whose predominant form ofVitamin D is Vitamin D2, such as patients receiving VitaminD2 supplementation, results that are subtherapeutic shouldbe confirmed with another method such as LC-MS/MS. Blood Venous blood specimen / Unknown 03/11/2024 03/11/2024 Jayla Prather MD LAB BLOOD ORDERABLES Final Resul t [facility] [address] [place] [phone] * Hepatitis A Antibody, Total (03/11/2024 12:00 AM EDT) Hepatitis A Antibody IgG Nonreactive Nonreactive [facility] Blood Venous blood specimen / Unknown 03/11/2024 03/11/2024 Jayla Prather MD LAB BLOOD ORDERABLES Final Resul t Performing Organization Address [place] [facility]/ZIP Co de Phone Number [facility] [address] [place] [phone] * Hepatitis B surface antigen, EIA (03/11/2024 12:00 AM EDT) Hepatitis B Surface Ag Negative Negative [facility] Blood Venous blood specimen / Unknown 03/11/2024 03/11/2024 Jayla Prather MD LAB BLOOD ORDERABLES Final Resul t Performing Organization Address [facility] de Phone Number [facility] [address] [place] [phone] * HIV-1/2 Antigen and Antibodies, Fourth Generation, with Reflexes (03/11/2024 12:00 AM EDT) [facility] HIV AB/AG Nonreactive Nonreactive [facility] Comment:HIV-1 p24 Ag and/or HIV-1/HIV-2 Ab not detected.A test result that is nonreactive does not exclude thepossibility of exposure to or infection with HIV-1 and/orHIV-2. Nonreactive results in this assay for individualswith prior exposure to HIV-1 and/or HIV-2 may be due toantigen and antibody levels that are below the limit ofdetection of this assay.The [employer] HIV Ag/Ab Combo assay result andsupplemental assay results should be interpreted inconjunction with the patient's clinical presentation,history and other laboratory results. If the results areinconsistent with clinical evidence, additional testing issuggested to confirm the result. Blood Venous blood specimen / Unknown 03/11/2024 03/11/2024 Jayla Prather MD LAB BLOOD ORDERABLES Final Resul t Performing Organization Address [place] [facility]/ZIP Co de Phone Number [facility] [address] [place] [phone] * Hepatitis B Core Antibody, Total (03/11/2024 12:00 AM EDT) Hepatitis B Core Antibody Nonreactive Nonreactive [facility] Blood Venous blood specimen / Unknown 03/11/2024 03/11/2024 Jayla Prather MD LAB BLOOD ORDERABLES Final Resul t Performing Organization Address [facility] de Phone Number [facility] [address] [place] [phone] * Hepatitis B Surface Antibody, Qualitative (03/11/2024 12:00 AM EDT) ~Hepatitis B Surface Antibody GRAYZONE Nonreactive [facility] Comment:GRAYZONE: 8.00 mIU/m L TO 11.99 mIU/mLTHE IMMUNE STATUS OF THE INDIVIDUAL SHOULD BE FURTHERASSESSED BY CONSIDERING OTHER FACTORS, SUCH CLINICALSTATUS, FOLLOW-UP TESTING, ASSOCIATED RISK FACTORS, AND THEUSE OF ADDITIONAL DIAGNOSTIC INFORMATION. Blood Venous blood specimen / Unknown 03/11/2024 03/11/2024 Jayla Prather MD LAB BLOOD ORDERABLES Final Resul t Performing Organization Address [facility] de Phone Number [facility] [address] [place] [phone] * Hepatitis C Antibody with Reflex to HCV, RNA, Quantitative, Real-Time PCR (03/11/2024 12:00 AM EDT) Hepatitis C Antibody Nonreactive Nonreactive [facility] Comment:Antibodies to HCV no t detected; does not exclude early acuteHCV infection. Blood Venous blood specimen / Unknown 03/11/2024 03/11/2024 Jayla Prather MD LAB BLOOD ORDERABLES Final Resul t Performing Organization Address [place] [facility] Co de Phone Number [facility] [address] [place] [phone] documented in this encounter Visit Diagnoses Diagnosis Family history of diabetes mellitus- Primary Vitamin D deficiency Palpitation Palpitations Routine screening for STI (sexually transmitted infection) Screening examination for venereal disease Immunity status testing Antibody response examination Low TSH level documented in this encounter Care Teams Slate Splitting Supervisor Relationship Specialty Start Date End Date Jayla Prather MD [address] [place] [phone] PCP - General Family Medicine 10/23/18 documented as of this encounter
--- OUTSIDE RECORDS SUMMARY | 2025-02-11 13:41 | XMS_ITS | Encounter Summary ---
Demographics Address [address] [place] [address] Home Phone Preferred Language Sinhala Marital Status Unknown Cheondoism Affiliation Unknown Race White Ethnic Group Unknown Author Organization [facility] Address [address] [place] [address] Phone Care Team Providers Care Store Promoter Name Role Phone Unavailable Primary Care Provider Unavailabl e Encounter Details Date Type Department Care Team (Late st Contact Info) Description 06/08/2017 Conversion Encounter [facility] [address] [place] [address] Social History Tobacco Use Types Packs/Day Years Used Date Smoking Tobacco: Never Assessed Comments Unknown Sex and Gender Information Value Date Recorded Sex Assigned at Not on file Legal Sex Female 4:11 PM EDT Gender Identity Not on file Sexual Orientation Not on file documented as of this encounter Plan of Treatment Not on file documented as of this encounter Visit Diagnoses Not on filedocumented in this encounter
--- OUTSIDE RECORDS SUMMARY | 2025-02-11 13:41 | XMS_ITS | Encounter Summary ---
Author Organization [email or web address] Address [address] [facility] 7t [place] [address] Care Team Providers Care Surface Plate Inspector Name Role Phone Jayla Prather MD Primary Care Provider [phone] Reason for Visit * Reason Onset Date Comments Nurse Triage 02/07/2025 Encounter Details Date Type Department Care Team ([facility] st Contact Info) Description 02/07/2025 Telephone [facility] MEDICINE [address] [place], [place] [phone] Jayla Prather MD [address] [place], [place] [phone] Nurse Triage Social History Tobacco Use Types [...] encounter Miscellaneous Notes * Telephone Encounter - Fouzia Grier RN - 02/08/2025 8:48 AM EDT Pt walked into [facility] regarding below message. Pt does not have any Sx of STI, no known exposure. Just wants routine STI testing. Explained that since she is not symptomatic, we usually advise [facility] which is not open today. Explained that we can book her an appt in [facility] but the lab [facility] is not open on Saturdays and with her not having Sx the appt wouldn't be for anything other than to order the labs and she would have to come back on Monday to get them done or go to [facility]. Pt is disappointed, she was under the impression that she would be able to come in on Monday and have labs ordered and get them done immediately. Apologized for the inconvenience. [facility] also closed today. Pt declined [facility] appt. Informed that routine STI testing was ordered last month and is outstanding. Can go to [facility] lab today before 11am or can come in Monday between 8:30-4:50. Ptstates will come Monday. * Telephone Encounter - Damari Martinez RN - 02/07/2025 2:32 PM EDT Call returned to Elina Nelson Mac to triage below. Denies any symptoms, no vaginal discharge, odor or rash. No uriinary sx. Pt is just looking for STI testing. As had unprotected intercourse. Advised can walk into [facility] building today before 4pm or into [facility] today or tomorrow . Reviewed [facility] operating hours and that wait times vary. Reviewed home care advise, ER precautions and reasons to call back. Pt agrees Protocol Used: STI Exposure (Adult) Protocol-Based Disposition: See in Office or Video Visit within 3 Days Positive Triage Question: * Patient is worried they have a sexually transmitted infection (STI) * All higher-acuity triage questions were negative Care Advice Discussed: * Reassurance and Education - STIs * STIs - Symptoms * Reasons To Call Back - You have more questions * Reassurance and Education - Preventing STIs * Male Condoms * Female Condoms * Reasons To Call Back - You have more questions * Telephone Encounter - Katarina Rey - 02/07/2025 2:25 PM EDT Symptom: Vaginal Symptoms - Not Bleeding Outcome: Schedule an appointment to be seen within 24 hours Reason: Caller denied all higher acuity questions The caller accepted this outcome. [phone] documented in this encounter Plan of Treatment Upcoming Encounters Date Type Department Care Team (Late st Contact Info) Description 02/21/2025 10:30 AM EDT Clinical Support [address] [address] 03/11/2025 10:30 AM EDT Office Visit [address] [place] [address] Jayla Prather MD [address] [place] [address] documented as of this encounter Visit Diagnoses Not on filedocumented in this encounter Additional Health Concerns Assessment Noted Time PHQ-9 Depression Total Score: 8 12/24/19 25 9:39 AM EST documented as of this encounter Care Teams Surface Plate Inspector Relationship Specialty Start Date End Date Jayla Prather MD [address] [place] [phone] PCP - General Family Medicine 10/23/18 documented as of this encounter
--- OUTSIDE RECORDS SUMMARY | 2025-02-11 13:41 | XMS_ITS | Clinical Summary ---
Author Organization [facility] Address [address] [place] [address] Phone Care Team Providers Care Chancellor Name Role Phone Unavailable Primary Care Provider Unavailabl e Immunizations Immunization Administration Dates Next Due DTP 01/20/1995, 2,01/20/1991,1989,04/23/1990 Hep B, ped/adol 06/13/2003,12/30/2002,11/27/2002 Hib (PRP-T) 05/22/1991,01/20/1991 IPV 01/20/1995, 2,01/20/1991,1989 MMR 01/20/1995,05/22/1991 Td (adult) (MBL), 2 Lf tetan us toxoid, PF, adsorbed 11/27/2002 Varicella 11/27/2002 Social History Tobacco Use Types Packs/Day Years Used Date Smoking Tobacco: Never Assessed Comments Unknown Sex and Gender Information Value Date Recorded Sex Assigned at Not on file Legal Sex Female 4:11 PM EDT Gender Identity Not on file Sexual Orientation Not on file Plan of Treatment Health Maintenance Due Date Last Done Comments DTaP,Tdap,and Td Vaccines (6 - Tdap) 11/28/2002 11/27/2002, 01/20/1995, 01/21/1992, Additional history exists Varicella Vaccines (2 of 2 - 2-dose childhood series) 02/19/2003 11/27/2002 Influenza Vaccines (#1) 2024 COVID-19 Vaccine ( season) 2024 HIB Vaccines Completed 05/22/1991, 01/20/1991 IPV Vaccines Completed 01/20/1995, 12/23, 01/20/1991, Additional history exists MMR Vaccines Completed 01/20/1995, 05/22/1991 Hepatitis B Vaccines Completed 06/13/2003, 12/30/2002, 11/27/2002 HPV Vaccines Aged Out No longer eligi ble based on patient's age to complete this topic Hepatitis A Vaccines Aged Out No long er eligible based on patient's age to complete this topic Men B Vaccine Aged Out No longer elig ible based on patient's age to complete this topic Meningococcal Vaccine Aged Out No aman remberto eligible based on patient's age to complete this topic Pneumococcal Vaccine Aged Out No long er eligible based on patient's age to complete this topic
--- OUTSIDE RECORDS SUMMARY | 2025-02-11 13:41 | XMS_ITS | Encounter Summary ---
Author Organization [employer] Address [address] [facility] 7t [place] [address] Care Team Providers Care Plastic Joint Maker Name Role Phone Jayla Prather MD Primary Care Provider [phone] Reason for Referral * Consultation (Routine) - Closed Specialty Diagnoses / Procedures Referred By Contac t Referred To Contact Endocrinology Diagnoses Abnormal TSH Jayla Prather MD [address] [place] [address] Phone: tel: fax: [facility] Endocrinology [address] [place], [place] Phone: tel: fax: Referral ID Status Reason Start Date Expiration Date V isits Requested Visits Authorized [id number] Closed Specialty Services Required 04/02/2024 04/02/2025 1 1 Encounter Details Date Type Department Care Team (Late st Contact Info) Description 04/02/2024 Orders Only [facility] [address] [place], [place] [phone] Jayla Prather MD [address] [place], [place] [phone] Abnormal TSH (Primary Dx) Social History Tobacco Use Types Packs/Day Years [...] Description 02/21/2025 10:30 AM EDT Clinical Support [facility] [address] [place] [address] 03/11/2025 10:30 AM EDT Office Visit [facility] [address] [place] [address] Jayla Prather MD [address] [place] [address] Scheduled Referrals Name Type Priority Associated Diagnoses Order Schedule Referral to Endocrinology Outpatient Referral Routine Abnormal TSH Expected: 04/02/2024 (Approximate), Expires: 04/02/2025 documented as of this encounter Visit Diagnoses Diagnosis Abnormal TSH- Primary documented in this encounter Care Teams Plastic Joint Maker Relationship Specialty Start Date End Date Jayla Prather MD [address] [place] [address] PCP - General Family Medicine 10/23/18 documented as of this encounter
--- OUTSIDE RECORDS SUMMARY | 2025-02-11 13:41 | XMS_ITS | Encounter Summary ---
Author Organization [employer] Address [address] [facility] 7t [place] [address] Care Team Providers Care Web Consultant Name Role Phone Jayla Prather MD Primary Care Provider [phone] Encounter Details Date Type Department Care Team (Latest Contact Info) Description 04/24/2019 Abstract [facility] CONVERSIONS Dental, Provider, DDS Social History Tobacco Use Types Packs/Day Years [...] Upcoming Encounters Date Type Department Care Team ( st Contact Info) Description 02/21/2025 10:30 AM EDT Clinical Support [facility] MEDICINE [address] [place] [address] 03/11/2025 10:30 AM EDT Office Visit [facility] MEDICINE [address] [place] [address] Jayla Prather MD [address] [place] [address] documented as of this encounter Visit Diagnoses Not on filedocumented in this encounter Care Teams Web Consultant Relationship Specialty Start Date End Date Jayla Prather MD [address] [place], [place] [phone] PCP - General Family Medicine 10/23/18 documented as of this encounter
[2025-02-11 13:47] LABS: Estimated Average Glucose 111 mg/dL; Hemoglobin A1C 125.7657 umol/L; Hemoglobin A1c % 5.5 % (<6.0); Total Hemoglobin (HGBA1C) 3436.2595 umol/L
[2025-02-11 14:04] LABS: Alanine Aminotransferase 45 U/L (0-31); Albumin Level 4.5 g/dL (3.5-5.0); Alkaline Phosphatase 44 U/L (39-117); Anion Gap 11 (12-20); Aspartate Amino Transferase 34 U/L (5-31); Bilirubin Total 0.2 mg/dL (0.0-1.0); Blood Urea Nitrogen 13 mg/dL (9-16); Calcium 9.2 mg/dL (8.4-10.2); Carbon Dioxide 25 mmol/L (22-29); Chloride 108 mmol/L (96-108); Cholesterol 151 mg/dL (<200); Estimated Glomerular Filt Rate > 60; Glucose Random 97 mg/dL (60-115); HDL Cholesterol 31 mg/dL (>40); LDL Cholesterol Calculated 88 mg/dL (<100); Sodium 140 mmol/L (135-145); Total Protein 7.7 g/dL (6.5-8.0); Triglycerides 161 mg/dL (<150)
[2025-02-11 14:08] LABS: TSH reflex Free T4 0.83 uIU/mL (0.32-4.0); Vitamin D 25-OH Total 36.6 ng/mL (>30)
[2025-02-11 15:58] LABS: CT PCR NOT DETECTED (Not Detect.); NG PCR NOT DETECTED (Not Detect.)
[2025-02-11 16:05] LABS: Reflex LDLD? No
[2025-02-12 08:36] LABS: HBsAGNum1 0.31 S/CO (0.00-0.99); HIV AB/AG Nonreactive (Nonreactive); HIV Num 1 0.08 S/CO (0.00-0.99); Hepatitis B Surface Antigen Negative (Negative); ~HepC Num1 0.08 S/CO (0.00-0.79); ~Hepatitis C Antibody Nonreactive (Nonreactive)
[2025-02-12 08:48] LABS: Syphilis Screen Nonreactive (Nonreactive)
== END 2025-02-11 11:23 | disposition home or self-care (01) ==
LOC: HO.HHCL 11:22
PROVIDERS: Visit Provider Family Medicine
DX: E05.90 Thyrotoxicosis, unspecified without thyrotoxic crisis or storm (principal); Z83.3 Family history of diabetes mellitus; Z13.1 Encounter for screening for diabetes mellitus; R03.0 Elevated blood-pressure reading, without diagnosis of hypertension; E55.9 Vitamin D deficiency, unspecified; Z13.220 Encounter for screening for lipoid disorders
CPT/HCPCS: 80053; 80061; 82306; 83036; 84443; 86780; 86803; 87340; 87389; 87491; 87591

== ENCOUNTER 2025-05-09 08:14 | Outpatient (REF) | payer OTHER, SELFPAY ==
--- NOTE | ~2025-05-09 | US_ITS ---
EXAMINATION: US COMPLETE ABDOMEN WITH LIVER ELASTOGRAPHY CLINICAL INFORMATION: Transaminitis. COMPARISON: None available. TECHNIQUE: Real-time imaging of the abdominal viscera. Noninvasive ultrasound liver fibrosis assessment is performed using Corrine ElastPQ point quantification shear wave elastography (pSWE) with a C5-2 MHz transducer. Multiple elastography samples are obtained. FINDINGS: PANCREAS: The visualized pancreatic head and body are normal in appearance. The remainder of the pancreas is obscured from visualization by the overlying bowel gas. ABDOMINAL AORTA: No aortic aneurysm is seen. INFERIOR VENA CAVA: Visualized portions are normal. LIVER: Liver is mildly enlarged. Normal contour. Diffusely increased hepatic echogenicity in keeping with probable fatty infiltration. No intrahepatic biliary dilatation. The right lobe measures 18.2 cm in length. The left lobe measures 11.3 cm in length. Portal flow is towards the liver (hepatopetal). Shear wave liver elastography median stiffness is 1.53 m/s (reference: normal median stiffness is 1.3 m/s or less). IQR/median stiffness to assess sampling precision is 0.08 (reference: good quality data set is IQR/median stiffness of 0.15 or less). GALLBLADDER: The gallbladder is physiologically distended without evidence of stones, sludge, polyps, wall thickening or pericholecystic fluid. COMMON BILE DUCT: Normal in caliber measuring 0.5 cm in diameter. RIGHT KIDNEY: No hydronephrosis. No renal calculi or focal parenchymal lesions. The kidney measures 11.7 cm in maximum dimension. LEFT KIDNEY: No hydronephrosis. No renal calculi or focal parenchymal lesions. The kidney measures 11.4 cm in maximum dimension. SPLEEN: Unremarkable. The spleen measures 7.0 cm in maximum dimension. FREE FLUID: None seen. US/US abdomen comp w elastography IMPRESSION: 1. Liver is mildly enlarged and diffusely increased in echogenicity without suspicious lesion. Findings most likely relate to steatosis. 2. Liver elastography: In the absence of other known clinical signs, measurements rule out compensated advanced chronic liver disease. If there are known clinical signs, further testing may be needed for confirmation. 3. Normal-appearing gallbladder and bile ducts. 4. Remainder of the exam is normal. REFERENCE: Society of Radiologists in Ultrasound Liver Stiffness Thresholds (2020): LIVER STIFFNESS THRESHOLDS: *Liver Stiffness equal or less than 1.3 m/s: High probability of being normal. *Liver Stiffness less than 1.7 m/s: In the absence of other known clinical signs, rules out compensated advanced chronic liver disease. *Liver Stiffness 1.7-2.1 m/s: Suggestive of compensated advanced chronic liver disease but need further test for confirmation. *Liver Stiffness over 2.1 m/s: Rules in compensated advanced chronic liver disease. *Liver Stiffness over 2.4 m/s: Suggestive of clinically significant portal hypertension. QUALITY OF DATA SET: *IQR/Median value equal or less than 0.15 implies a quality data set. *IQR/Median value over 0.15 implies a poor quality data set. SIGNIFICANT CHANGE FROM PRIOR EXAM: Significant change if liver stiffness measurement is 10% or greater from prior exam. OTHER CONSIDERATIONS: The stage of liver fibrosis may be overestimated in the setting of acute hepatitis, liver inflammation, elevated liver function tests, hepatic vascular congestion, obstructive cholestasis, non-fasting state, and infiltrative diseases such as amyloidosis and lymphoma. In some patients with NAFLD, the liver stiffness thresholds for compensated advanced chronic liver disease may be lower. In causes other than viral hepatitis and NAFLD, liver stiffness thresholds are not well established. Electronically signed by: Brain Redman MD 05/09/2025 08:49 AM EDT
--- OUTSIDE RECORDS SUMMARY | 2025-05-09 08:17 | XMS_ITS | Encounter Summary ---
Author Organization [employer] Address [address] [place] [address] 7 [place] [address] Care Team Providers Care Installment Loan Collector Name Role Phone Jayla Prather MD Primary Care Provider [phone] Encounter Details Date Type Department Care Team (Late st Contact Info) Description 09/20/2022 Abstract [facility] MEDICINE [address] [place] [address] [phone] ProviderAgata MD Social History Tobacco Use Types [...] Care Team (Late st Contact Info) Description 07/09/2025 10:15 AM EDT Office Visit [address] [address] Jayla Prather MD [address] [place] [address] 07/29/2025 2:30 PM EDT Clinical Support [address] [address] documented as of this encounter Visit Diagnoses Not on filedocumented in this encounter Care Teams Installment Loan Collector Relationship Specialty Start Date End Date Jayla Prather MD [address] [place] [address] PCP - General Family Medicine 10/23/18 documented as of this encounter
--- OUTSIDE RECORDS SUMMARY | 2025-05-09 08:17 | XMS_ITS | Encounter Summary ---
Demographics Address [address] [place] [address] Home Phone Preferred Language Turkmen Marital Status Unknown Tenriism Affiliation Unknown Race White Ethnic Group Unknown Author Organization [facility] Address [address] [place] [phone] Phone Care Team Providers Care Meatcutter Name Role Phone Unavailable Primary Care Provider Unavailabl e Encounter Details Date Type Department Care Team (Late st Contact Info) Description 06/08/2017 Conversion Encounter [facility] [address] [place] [address] Social History Tobacco Use Types Packs/Day Years [...]
== END 2025-05-09 08:15 | disposition home or self-care (01) ==
LOC: HO.US 08:14
PROVIDERS: PCP Family Medicine; Visit Provider Family Medicine
DX: R74.01 Elevation of levels of liver transaminase levels (principal)
CPT/HCPCS: 76700; 76981

== ENCOUNTER → 2025-05-09 08:15 | Outpatient (BNV) | payer OTHER, SELFPAY | PROVIDERS: PCP Family Medicine; Visit Provider Radiology Diagnostic Radiology | DX: R74.01 Elevation of levels of liver transaminase levels (principal) | CPT/HCPCS: 76700 ==

== ENCOUNTER 2025-07-09 10:45 | Outpatient (REF) | payer OTHER, SELFPAY ==
--- OUTSIDE RECORDS SUMMARY | 2025-07-09 10:15 | XMS_ITS | Encounter Summary ---
Author Organization [employer] Address [address] [facility] 7t [place] [address] Care Team Providers Care Cook Railroad Name Role Phone Jayla Prather MD Primary Care Provider [phone] Encounter Details Date Type Department Care Team ([facility] st Contact Info) Description 07/09/2025 10:15 AM EDT Office Visit [facility] MEDICINE [address] [place], [place] [phone] Jayla Prather MD [address] [place], [place] [phone] Elevated BP without diagnosis of hypertension (Primary Dx); Vitamin D deficiency; Transaminitis Social History Tobacco Use Types Packs/Day Years [...] the past 12 months, has t he [employer], gas, oil or water company threatened to shut off services in your home? No 12/10/2024 Depression Answer Date Recorded Patient Health Questionnaire-2 Score 4 12/23/2024 Internet Access Answer Date Recorded Internet Access Q1 Yes 12/10/2024 Internet Access Q2 Not on file 12/10/2024 Comments No Sex and Gender Information Value Date Recorded Sex Assigned at Female 08/22/2022 10:18 AM EDT Legal Sex Female 10:18 AM EDT Gender Identity Female 08/22/2022 10:18 AM EDT Sexual Orientation Choose not to disclose 2021 10:18 AM EDT documented as of this encounter Last Filed Vital Signs Vital Sign Reading Time Taken Comments Blood Pressure 130/82 07/09/2025 10:36 AM EDT Pulse 78 07/09/2025 10:22 AM EDT Temperature 36.3 C (97.3 F) 07/09/2025 10:22 AM EDT Respiratory Rate 16 07/09/2025 10:2 2 AM EDT Oxygen Saturation 99% 07/09/2025 10: 22 AM EDT Inhaled Oxygen Concentration - - Weight 68.9 kg (151 lb 12.8 oz) 025 10:22 AM EDT Height 154.9 cm (5' 1 ) 07/09/2025 10:2 2 AM EDT Body Mass Index 28.68 07/09/2025 10:22 AM EDT documented in this encounter Miscellaneous Notes * Assessment & Plan Note - Jayla Prather MD - 07/09/2025 5:30 AM EDTAssociated Problem(s): Transaminitis - Most likely fatty liver/ metabolic dysfunction-associated steatotic liver disease - Will repeat lab in 3 months - Hepatitis profile negative - Encourage lifestyle modification * Assessment & Plan Note - Jayla Prather MD - 07/09/2025 5:29 AM EDTAssociated Problem(s): Vitamin D deficiency - Pt was seen by [facility] for hyperthyroidism. Pt was given reassurance and will be monitored periodically. 12/23/24 - She has Vitamin D deficiency she is on Depo-Provera. 12/23/24 - Currently taking Vitamin D supplement - Most recent vitamin D: 36 on 02/11/25 * Assessment & Plan Note - Jayla Prather MD - 07/09/2025 5:28 AM EDTAssociated Problem(s): Elevated BP without diagnosis of hypertension -Goal BP < 130/80 per ACC/AHA guideline (Treatment threshold >=140/90) and < 140/90 per JNC-8 -Her BP in the clinic is always borderline range -Continue working on lifestyle modifications -Recommended self-monitoring BP; Pt declines checking BP at home documented in this encounter Plan of Treatment Upcoming Encounters Date Type Department Care Team (Late st Contact Info) Description 07/29/2025 10:30 AM EDT Clinical Support [facility] MEDICINE [address] [place] [address] Scheduled Orders Name Type Priority Associated Diagnoses Orde r Schedule Basic Metabolic Panel Lab Routine Elevated BP without diagnosis of hypertension Expected: 07/09/2025 (Approximate), Expires: 07/09/2026 documented as of this encounter Visit Diagnoses Diagnosis Elevated BP without diagnosis of hypertension- Primary Vitamin D deficiency Transaminitis Nonspecific elevation of levels of transaminase or lactic acid dehydrogenase (LDH) documented in this encounter Additional Health Concerns Assessment Noted Time PHQ-9 Depression Total Score: 8 12/24/19 25 9:39 AM EST documented as of this encounter Care Teams Cook Railroad Relationship Specialty Start Date End Date Jayla Prather MD [address] [place] [address] PCP - General Family Medicine 10/23/18 documented as of this encounter
[2025-07-09 13:22] LABS: MANUAL DIFF FLAG NO
[2025-07-09 13:29] LABS: Hematocrit 41.1 % (37.0-47.0); Hemoglobin 13.2 g/dl (12.0-16.0); Imm Gran Abs Auto 0.05 X10*3/uL (0.00-0.03); Imm Gran Pct Auto 0.7 % (0.0-0.4); Lymphocytes Absolute Auto 2.0 X10*3/uL (1.2-4.9); Mean Corpuscular HGB Conc 32.1 g/dl (31.0-35.0); Mean Corpuscular Hemoglobin 26.2 pg (27.0-33.0); Mean Corpuscular Volume 81.7 fL (80.0-98.0); NRBC Abs Auto 0.000 X10*3/uL (0.0-0.012); NRBC Pct Auto 0.0 /100WBC (0.0-0.2); Platelet Count 423 X10*3/uL (160-400); Red Blood Count 5.03 X10*6/uL (4.20-5.50); White Blood Count 7.3 X10*3/uL (4.8-10.8)
--- OUTSIDE RECORDS SUMMARY | 2025-07-09 13:36 | XMS_ITS | Encounter Summary ---
Author Organization [employer] Address [address] [place] [address] 7 [place] [address] Care Team Providers Care Filter Tank Tender Helper Head Name Role Phone Jayla Prather MD Primary Care Provider [phone] Encounter Details Date Type Department Care Team (Late st Contact Info) Description 09/20/2022 Abstract [facility] MEDICINE [address] [place] [address] [phone] ProviderAgata MD Social History Tobacco Use Types [...] Description 07/29/2025 10:30 AM EDT Clinical Support [facility] MEDICINE [address] [place] [address] documented as of this encounter Visit Diagnoses Not on filedocumented in this encounter Care Teams Filter Tank Tender Helper Head Relationship Specialty Start Date End Date [place] [address] PCP - General Family Medicine 10/23/18 documented as of this encounter
--- OUTSIDE RECORDS SUMMARY | 2025-07-09 13:36 | XMS_ITS | Encounter Summary ---
Author Organization [employer] Address [address] [facility] 7t [place] [address] Care Team Providers Care Acoustical Tile Drill Press Operator Name Role Phone Jayla Prather MD Primary Care Provider [phone] Encounter Details Date Type Department Care Team (Latest Contact Info) Description 07/09/2025 Travel Social History Tobacco Use Types Packs/Day Years [...] Description 07/29/2025 10:30 AM EDT Clinical Support [facility] MEDICINE [address] [place] [address] documented as of this encounter Visit Diagnoses Not on filedocumented in this encounter Additional Health Concerns Assessment Noted Time PHQ-9 Depression Total Score: 8 12/24/19 25 9:39 AM EST documented as of this encounter Care Teams Acoustical Tile Drill Press Operator Relationship Specialty Start Date End Date Jayla Prather MD [address] [place] [address] PCP - General Family Medicine 10/23/18 documented as of this encounter
--- OUTSIDE RECORDS SUMMARY | 2025-07-09 13:36 | XMS_ITS | Encounter Summary ---
Author Organization [employer] Address [address] [place] [address] 7t [place] [address] Care Team Providers Care Manager Study Name Role Phone Jayla Prather MD Primary Care Provider [phone] Encounter Details Date Type Department Care Team (Latest Contact Info) Description 04/24/2019 Abstract [facility] CONVERSION[facility] Dental, Provider, DDS Social History Tobacco [...] Description 07/29/2025 10:30 AM EDT Clinical Support [facility] [address] [place] [address] documented as of this encounter Visit Diagnoses Not on filedocumented in this encounter Care Teams Manager Study Relationship Specialty Start Date End Date Jayla Prather MD [address] [place] [address] PCP - General Family Medicine 10/23/18 documented as of this encounter
--- OUTSIDE RECORDS SUMMARY | 2025-07-09 13:36 | XMS_ITS | Encounter Summary ---
Author Organization [employer] Address [address] [facility] 7t [place] [address] Care Team Providers Care Sheet Mill Supervisor Name Role Phone Jayla Prather MD Primary Care Provider [phone] Encounter Details Date Type Department Care Team (Latest Contact Info) Description 07/08/2025 Travel Social History Tobacco Use Types Packs/Day [...] Description 07/29/2025 10:30 AM EDT Clinical Support [facility] MEDICINE [address] [place] [address] documented as of this encounter Visit Diagnoses Not on filedocumented in this encounter Additional Health Concerns Assessment Noted Time PHQ-9 Depression Total Score: 8 12/24/19 25 9:39 AM EST documented as of this encounter Care Teams Sheet Mill Supervisor Relationship Specialty Start Date End Date Jayla Prather MD [address] [place] [address] PCP - General Family Medicine 10/23/18 documented as of this encounter
--- OUTSIDE RECORDS SUMMARY | 2025-07-09 13:36 | XMS_ITS | Encounter Summary ---
Author Organization [employer] Address [address] [place] [address] 7 [place] [address] Care Team Providers Care Drug Enforcement Administration Agent Name Role Phone Jayla Prather MD Primary Care Provider [phone] Reason for Visit * Reason Onset Date Comments Nurse Triage 06/19/2023 Encounter Details Date Type Department Care Team ([facility] st Contact Info) Description 06/19/2023 Telephone [facility] MEDICINE [address] [place], [place] [phone] Jayla Prather MD [address] [place], [place] [phone] Nurse Triage Social History Tobacco Use Types [...] and shoulder pain Please contact pt at [phone] documented in this encounter Plan of Treatment Upcoming Encounters Date Type Department Care Team (Late st Contact Info) Description 07/29/2025 10:30 AM EDT Clinical Support [facility] MEDICINE [address] [place] [address] documented as of this encounter Visit Diagnoses Not on filedocumented in this encounter Care Teams Drug Enforcement Administration Agent Relationship Specialty Start Date End Date Jayla Prather MD [address] [place] [address] PCP - General Family Medicine 10/23/18 documented as of this encounter
--- OUTSIDE RECORDS SUMMARY | 2025-07-09 13:36 | XMS_ITS | Encounter Summary ---
Demographics Address [address] [facility] [place] [address] Home Phone Preferred Language Tanzanian Marital Status Unknown Advent Affiliation Unknown Race White Ethnic Group Unknown Author Organization [facility] Address [address] [place] [address] Phone Care Team Providers Care Computer Aided Drafter Name Role Phone Unavailable Primary Care Provider Unavailabl e Encounter Details Date Type Department Care Team (Late st Contact Info) Description 06/08/2017 Conversion Encounter [facility] [address] [place] [address] Social History Tobacco Use Types Packs/Day Years [...]
--- OUTSIDE RECORDS SUMMARY | 2025-07-09 13:36 | XMS_ITS | Encounter Summary ---
Author Organization [employer] Address [address] [facility] 7 [place] [address] Care Team Providers Care Assistant Professor Of Music Name Role Phone Jayla Prather MD Primary Care Provider [phone] Encounter Details Date Type Department Care Team ([facility] Contact Info) Description 03/11/2024 Orders Only [facility] MED[facility] [address] [place], [place] [phone] Jayla Prather MD [address] [place], [place] [phone] Family history of diabetes mellitus (Primary Dx); [...] Description 07/29/2025 10:30 AM EDT Clinical Support [facility]INE [address] [place] [address] documented as of this encounter Procedures Procedure Name Priority Date/Time Associated Diagnosis Comments CHLAMYDIA/N. GONORRHOEAE RNA, TMA, UROGENITAL Routine 02/11/2025 11:34 AM EDT Routine screening for STI (sexually transmitted infection) THYROID PEROXIDASE ANTIBODIES Routine 04/01/2024 10:45 AM [...] mellitus documented in this encounter Results * Chlamydia/N. Gonorrhoeae RNA, TMA, Urogenitial (02/11/2025 11:34 AM EDT) CT PCR NOT DETECTED Not Detect. [facility] Comment:A not detected test result does not exclude the possibilityof infection because test results can be affected byimproper specimen collection, concurrent antibiotic therapy,or the number of organisms in the specimen which may bebelow the sensitivity of the test. As with many diagnostictests, results from the Xpert CT/NG assay should beinterpreted in conjunction with other laboratory andclinical data available to the clinician.Xpert CT/NG performance has not been evaluated in patientsless than 14 years of age. The assay should not be used forthe evaluationof suspected sexual abuse or for other medico-legalindications. Additional testing is recommended in anycircumstance when false positive or false negative resultscould lead to adverse medical, social or psychologicalconsequences. NG PCR NOT DETECTED Not Detect. [facility] Comment:A not detected test result does not exclude the possibilityof infection because test results can be affected byimproper specimen collection, concurrent antibiotic therapy,or the number of organisms in the specimen which may bebelow the sensitivity of the test. As with many diagnostictests, results from the Xpert CT/NG assay should beinterpreted in conjunction with other laboratory andclinical data available to the clinician.Xpert CT/NG performance has not been evaluated in patientsless than 14 years of age. The assay should not be used forthe evaluationof suspected sexual abuse or for other medico-legalindications. Additional testing is recommended in anycircumstance when false positive or false negative resultscould lead to adverse medical, social or psychologicalconsequences. Urine, Random 02/11/2025 11: 34 AM EDT 02/11/2025 1:22 PM EDT Narrative [facility] - 02/11/2025 3:58 PM EDT Urine Jayla Prather MD LAB MICROBIOLOGY - GENERAL ORDER CRISTOPHER Final Result Performing Organization Address [facility] Co de Phone Number [facility] [address] [place] [phone] * Thyroid Peroxidase Antibodies (04/01/2024 10:45 AM EDT) Thyroid Peroxidase Antibodies <1 <9 IU/mL [facility] Comment:THIS TEST WAS PERFOR MED AT:[facility] [address] [phone] FUNG MD Blood Venous blood specimen / Unknown 04/01/2024 10:45 AM EDT 04/01/2024 11:40 AM EDT Jayla Prather MD LAB BLOOD ORDERABLES Final Resul t Performing Organization Address [facility] Co de Phone Number [facility] [address] [place] [phone] * (ABNORMAL) TSH (04/01/2024 10:45 AM EDT) Thyroid Stimulating Hormone 0.13(L) 0.32 - 4.0 uIU/mL [facility] Comment:TSH 3rd Generation ( [facility]) Blood Venous blood specimen / Unknown 04/01/2024 10:45 AM EDT 04/01/2024 11:38 AM EDT Jayla Prather MD LAB BLOOD ORDERABLES Final Resul t Performing Organization Address City/[facility] Co de Phone Number [facility] [address] [place] [phone] * T4, Free (04/01/2024 10:45 AM EDT) Free T4 (Free Thyroxine) 0.96 0.71 - 1.85 ng/dL [facility] Blood Venous blood specimen / Unknown 04/01/2024 10:45 AM EDT 04/01/2024 11:38 AM EDT Jayla Prather MD LAB BLOOD ORDERABLES Final Resul t Performing Organization Address [facility] de Phone Number [facility] [address] [place] [phone] * Hemoglobin A1c (03/11/2024 12:11 PM EDT) Hemoglobin A1c 5.6 <6.0 % [facility] Comment:Hemoglobin A1C Refer ence Range Adults: 4.8 - 6.0 % Non diabetic: < 6.0 % Goal: < 7.0 %Additional Action Suggested: > 8.0 %Note: Hemoglobin A1c results are invalid for patients with abnormal amounts of HbF. Blood transfusions may impact the HbA1c concentration in the patient sample. Estimated Average Glucose 114 mg/dL [facility] Comment:eAG = Estimated ave rage glucose which is %A1C expressed asaverage glucose, using the formula of the E9C-LskgcwbCefikpu Glucose study (ADAG), Diabetes Care, Vol.31,#8,2007 Blood Venous blood specimen / Unknown 03/11/2024 12:11 PM EDT 03/11/2024 4:22 PM EDT us Jyala Prather MD LAB BLOOD ORDERABLES Final Resul t Performing Organization Address City/[facility]/ZIP Co de Phone Number [facility] [address] [place] [phone] * Syphilis Screen (03/11/2024 11:00 AM EDT) Syphilis Screen Nonreactive Nonreactive [facility] Blood 03/11/2024 11:0 0 AM EDT 03/11/2024 4:22 PM EDT us Jayla Prather MD LAB BLOOD ORDERABLES Final Resul t Performing Organization Address [facility] Co de Phone Number [facility] [address] [place] [phone] * T4, Free (03/11/2024 12:00 AM EDT) Free T4 (Free Thyroxine) 1.02 0.71 - 1.85 ng/dL [facility] 03/11/2024 03/11/2024 us Jayla Prather MD LAB BLOOD ORDERABLES Final Resul t Performing Organization Address [facility] Co de Phone Number [facility] [address] [place] [phone] * (ABNORMAL) TSH with Reflex to Free T4 (03/11/2024 12:00 AM EDT) TSH reflex Free T4 0.24(L) 0.32 - 4.0 uIU/mL [facility] Blood 03/11/2024 03/11/2024 us Jayla Prather MD LAB BLOOD ORDERABLES Final Resul t Performing Organization Address [facility] Co de Phone Number [facility] [address] [place] [phone] * Vitamin D, 25-Hydroxy, Total, Immunoassay (03/11/2024 12:00 AM EDT) Vitamin D 25-OH Total 32.4 >30 ng/mL [facility] Comment:Health Based Referen ce Values*< 20 ng/mL Thejvfvki27-95 ng/mL Insufficient> 30 ng/mL Sufficient*Ollie BONNER. N [...] ORDERABLES Final Resul t Performing Organization Address [facility] Co de Phone Number [facility] [address] [place] [phone] * Hepatitis A Antibody, Total (03/11/2024 12:00 AM EDT) Hepatitis A Antibody IgG Nonreactive Nonreactive [facility] Blood Venous blood specimen / Unknown 03/11/2024 03/11/2024 Jayla Prather MD LAB BLOOD ORDERABLES Final Resul t Performing Organization Address [facility] Co de Phone Number [facility] [address] [place] [phone] * Hepatitis B surface antigen, EIA (03/11/2024 12:00 AM EDT) Hepatitis B Surface Ag Negative Negative [facility] Blood Venous blood specimen / Unknown 03/11/2024 03/11/2024 us Jayla Prather MD LAB BLOOD ORDERABLES Final Resul t Performing Organization Address City/[facility]/ZIP Co de Phone Number [facility] [address] [place] [phone] * HIV-1/2 Antigen and Antibodies, Fourth Generation, with Reflexes (03/11/2024 12:00 AM EDT) HIV AB/AG Nonreactive Nonreactive [facility] Comment:HIV-1 p24 Ag and/or HIV-1/HIV-2 Ab not detected.A test result that is nonreactive does not exclude thepossibility of exposure to or infection with HIV-1 and/orHIV-2. Nonreactive results in this assay for individualswith prior exposure to HIV-1 and/or HIV-2 may be due toantigen and antibody levels that are below the limit ofdetection of this assay.The [email or web address] HIV Ag/Ab Combo assay result andsupplemental assay results should be interpreted inconjunction with the patient's clinical presentation,history and other laboratory results. If the results areinconsistent with clinical evidence, additional testing issuggested to confirm the result. Blood Venous blood specimen / Unknown 03/11/2024 03/11/2024 us Jayla Prather MD LAB BLOOD ORDERABLES Final Resul t Performing Organization Address City/[facility]/ZIP Co de Phone Number [facility] [address] [place] [phone] * Hepatitis B Core Antibody, Total (03/11/2024 12:00 AM EDT) Hepatitis B Core Antibody Nonreactive Nonreactive [facility] Blood Venous blood specimen / Unknown 03/11/2024 03/11/2024 Jayla Prather MD LAB BLOOD ORDERABLES Final Resul t Performing Organization Address [facility] Co de Phone Number [facility] [address] [place] [phone] * Hepatitis B Surface Antibody, Qualitative (03/11/2024 12:00 AM EDT) ~Hepatitis B Surface Antibody GRAYZONE Nonreactive [facility] Comment:GRAYZONE: 8.00 mIU/m L TO 11.99 mIU/mLTHE IMMUNE STATUS OF THE INDIVIDUAL SHOULD BE FURTHERASSESSED BY CONSIDERING OTHER FACTORS, SUCH CLINICALSTATUS, FOLLOW-UP TESTING, ASSOCIATED RISK FACTORS, AND THEUSE OF ADDITIONAL DIAGNOSTIC INFORMATION. Blood Venous blood specimen / Unknown 03/11/2024 03/11/2024 Jayla Prather MD LAB BLOOD ORDERABLES Final Resul t Performing Organization Address [facility] Co de Phone Number [facility] [address] [place] [phone] * Hepatitis C Antibody with Reflex to HCV, RNA, Quantitative, Real-Time PCR (03/11/2024 12:00 AM EDT) Hepatitis C Antibody Nonreactive Nonreactive [facility] Comment:Antibodies to HCV no t detected; does not exclude early acuteHCV infection. Blood Venous blood specimen / Unknown 03/11/2024 03/11/2024 Jayla Prather MD LAB BLOOD ORDERABLES Final Resul t Performing Organization Address [facility] Co de Phone Number [facility] [address] [place] [phone] documented in this encounter Visit Diagnoses Diagnosis Family history of diabetes mellitus- Primary Vitamin D deficiency Palpitation Palpitations Routine screening for STI (sexually transmitted infection) Screening examination for venereal disease Immunity status testing Antibody response examination Low TSH level documented in this encounter Care Teams Assistant Professor Of Music Relationship Specialty Start Date End Date Jayla Prather MD [address] [place] [phone] PCP - General Family Medicine 10/23/18 documented as of this encounter
--- OUTSIDE RECORDS SUMMARY | 2025-07-09 13:36 | XMS_ITS | Encounter Summary ---
Author Organization [employer] Address [address] [place] [address] 7 [place] [address] Care Team Providers Care Craft Manager Name Role Phone Jayla Prather MD Primary Care Provider [phone] Reason for Visit * Reason Onset Date Comments CHART PREP 07/08/2025 Encounter Details Date Type Department Care Team ([facility] st Contact Info) Description 07/08/2025 Telephone [facility] [address] [place], [place] [phone] Jayla Prather MD [address] [place], [place] [phone] CHART PREP Social History Tobacco Use Types Packs/Day Years [...] encounter Miscellaneous Notes * Telephone Encounter - Lashanda Mcwilliams [place] - 07/08/2025 7:36 PM EDT Chart Prep Labs: done Images: done ABD US Referrals: not applicable Vaccines due: Covid, Flu, Tdap, and HPV Screenings: LMP Overdue care gaps: Not applicable documented in this encounter Plan of Treatment Upcoming Encounters Date Type Department Care Team (Late st Contact Info) Description 07/29/2025 10:30 AM EDT Clinical Support [facility] [address] [place] [phone] documented as of this encounter Visit Diagnoses Not on filedocumented in this encounter Additional Health Concerns Assessment Noted Time PHQ-9 Depression Total Score: 8 12/24/19 25 9:39 AM EST documented as of this encounter Care Teams Craft Manager Relationship Specialty Start Date End Date Jayla Prather MD [address] [place] [phone] PCP - General Family Medicine 10/23/18 documented as of this encounter
--- OUTSIDE RECORDS SUMMARY | 2025-07-09 13:36 | XMS_ITS | Clinical Summary ---
Author Organization [employer] Address [address] [place] [address] 7[address] [place] [address] Care Team Providers Care Deskidding Machine Operator Name Role Phone Jayla Prather MD Primary Care Provider [phone] Allergies No known active allergies Medications medroxyPROGESTERo [...] 3 11/22/19 25 Active Blood Pressure [facility] [place] every morning or as directed 1 each 12/24/19 25 Active Diclofenac Sodium 1 % gel Apply to affected areas once or twice daily as needed for pain 100 g 1 12/24/19 25 Active cholecalciferol (D3-1000) 25 MCG (1000 UT) capsuleIndication s:Vitamin deficiency Take 1 capsule (25 mcg) by mouth Once per day. 90 capsule 3 12/24/19 25 Active amLODIPine (Norvasc) 2.5 MG tablet Take 1 tablet (2.5 mg) by mouth Once per day. 90 tablet 3 07/09/20 25 09/17/2 026 Active Hospital, Clinic, or Other Facility Administered Medication Ordered Dose Route Frequency Start Date End Date Status medroxyPROGESTERone (Depo-Provera) injection 150 mgIndications:Encounte r for contraceptive management, unspecified type 150 mg IM Every 3 months 11/22/2024 11/17/2025 Acti ve Active Problems Problem Noted Date Diagnosed Date Abdominal bloating 03/11/2025 Assessment & Plan (03/11/2025 10:47 AM EDT): - Check H pylori - Improve diet Transaminitis 03/11/2025 Assessment & Plan (07/09/2025 5:30 AM EDT): - Most likely fatty liver/ metabolic dysfunction-associated steatotic liver disease - Will repeat lab in 3 months - Hepatitis profile negative - Encourage lifestyle modification Assessment & Plan (03/11/2025 10:48 AM EDT): - Most likely fatty liver/ metabolic dysfunction-associated steatotic liver disease - Will repeat lab in 3 months - Hepatitis profile negative - Encourage lifestyle modification Depression 12/28/2024 Assessment & Plan (12/28/2024 6:48 AM EST): - PHQ9 score 8, GAD7 score 2 - her depression symptoms seem to be manifesting as somatic symptoms - discussed about having therapist for unresolved grief (her trauma and loss of her mother) - patient was able to contract her safety today Elevated BP without diagnosis of hypertension Assessment & Plan (07/09/2025 5:28 AM EDT): -Goal BP < 130/80 per ACC/AHA guideline (Treatment threshold >=140/90) and < 140/90 per JNC-8 -Her BP in the clinic is always borderline range -Continue working on lifestyle modifications -Recommended self-monitoring BP; Pt declines checking BP at home Assessment & Plan (03/17/2025 1:15 PM EDT): -Goal BP < 130/80 per ACC/AHA guideline (Treatment threshold >=140/90) and < 140/90 per JNC-8 -Her BP in the clinic is always borderline range -Continue working on lifestyle modifications -Recommended self-monitoring BP; Pt declines checking BP at home Assessment & Plan (12/28/2024 6:49 AM EST): [...] Subclinical hyperthyroidism 04/02/2024 Overview (04/02/2024): Referred to business line manager Assessment & Plan (03/11/2025 9:00 AM EDT): - mildly low TSH - evaluated by business line manager, last seen in Oct 2024 - discharged to primary care as she does not need any medication at this time - continue periodic monitoring Assessment & Plan (12/28/2024 7:03 AM EST): - mildly low TSH - evaluated by business line manager, last seen in Oct 2024 - discharged [...] Vitamin D deficiency 09/20/2022 Assessment & Plan (07/09/2025 5:29 AM EDT): - Pt was seen by Legal Entity Controller for hyperthyroidism. Pt was given reassurance and will be monitored periodically. 12/23/24 - She has Vitamin D deficiency she is on Depo-Provera. 12/23/24 - Currently taking Vitamin D supplement - Most recent vitamin D: 36 on 02/11/25 Assessment & Plan (03/11/2025 10:50 AM EDT): - Pt was seen by Legal Entity Controller for hyperthyroidism. Pt was given reassurance and will be monitored periodically. 12/23/24 - She has Vitamin D deficiency she is on Depo-Provera. 12/23/24 - Currently taking Vitamin D supplements and will resume. 12/23/24 - Most recent: 36 on 02/11/25 Assessment & Plan (12/23/2024 2:41 PM EST): - Pt was seen by Legal Entity Controller for hyperthyroidism. Pt was given reassurance and will be monitored periodically. 12/23/24 - She has Vitamin D deficiency she is on Depo-Provera. 12/23/24 - Currently taking Vitamin D supplements and will resume. 12/23/24 Headache 09/20/2022 Assessment & Plan (03/11/2025 9:01 AM EDT): - MRI on 02/16/21 normal - well-controlled at this time - sleep hygiene Assessment & Plan (12/28/2024 6:45 AM EST): [...] Encounters Date Type Department Care Team Description 07/09/2025 10:15 AM EDT Office Visit [facility] [place] [address] Jayla Prather MD Elevated BP without diagnosis of hypertension (Primary Dx); Vitamin D deficiency; Transaminitis 07/09/2025 Travel 07/08/2025 Telephone [facility] [place] [address] Jayla Prather MD CHART PREP 07/08/2025 Travel 05/06/2025 2:30 PM EDT Clinical Support [facility] [place] [address] Elaine Hanley, RN Depo-Provera contraceptive status 05/06/2025 Travel 05/05/2025 Travel from Last 3 Months Immunizations Immunization Administration Dates Next Due DTP [...] Q2 Not on file 12/10/2024 Comments No Intention Date Recorded No desire to become (finding) 0 05/06/2025 Sex and Gender Information Value Date Recorded [...] Mass Index 28.68 07/09/2025 10:22 AM EDT Plan of Treatment Upcoming Encounters Date Type Department Care Team (Late st Contact Info) Description 07/29/2025 10:30 AM EDT Clinical Support [address] [address] Health Maintenance Due Date Last Done Comments HPV Vaccines (3 - 3-dose series) 11/15/2009 08/23/2009, 09/24/2008 DTaP/Tdap/Td Vaccines (9 - Td or Tdap) 03/08/2023 03/08/2013, 11/27/2002, 11/27/2002, Additional history exists COVID-19 Vaccine ( season) 2025 12/21/2021, 2021 Influenza Vaccine (#1) 2025 8, 11/21/2016, 07/29/2011 SDOH Screening 12/10/2025 12/10/2024 Alcohol/Substance Use Screening 12/23/2025 12/23/2024 Depression Screening 12/23/2025 12/23/2024, 12/24/19 Disability Screening 03/11/2026 03/11/2025 Family Planning (PISQ) 05/06/2026 05/06/2025 Tobacco Screening 07/09/2026 07/09/2025 Cervical Cancer Screening 09/29/2027 HPV/Cotest 09/29/2027 09/29/2022, 02/2022, 08/27/2019 Pap Smear 09/29/2027 09/29/2022, 09/26/2022 Zoster Vaccines (1 of 2) 2039 RSV Patients and Patients Aged 60 years or older (1 - 1-dose 75+ series) 2064 HIB Vaccines Completed 05/22/1991, 0 10/1990, 01/20/1991, Additional history exists IPV Vaccines Completed 01/20/1995, 0 11/1994, 01/21/1992, Additional history exists Hepatitis B Vaccines Completed 06/13/2003, 12/30/2002, 11/27/2002 HIV Screening Completed 02/11/2025, 02/21, 04/17/2023, Additional history exists Hepatitis C Screening Completed 02/11/2025 , 03/11/2024, 10/20/2020 Hepatitis A Vaccines Aged Out No long er eligible based on patient's age to complete this topic Meningococcal B Vaccine Aged Out No l onger eligible based on patient's age to complete this topic Meningococcal Vaccine Aged Out No aman remberto eligible based on patient's age to complete this topic Pneumococcal Vaccine: Pediatrics (0 to 5 Years) and At-Risk Patients (6 to 49) Years Aged Out No longer eligible based on patient's age to complete this topic RSV under 20 months Aged Out No longe r eligible based on patient's age to complete this topic Rotavirus Vaccines Aged Out No longer eligible based on patient's age to complete this topic Procedures Procedure Name Priority Date/Time Associated Diagnosis Comments CBC WITH AUTO DIFFERENTIAL Routine 07/09/2025 11:13 AM EDT Transaminitis US ABDOMEN COMPLETE WITH ELASTOGRAPHY Routine 05/09/2025 8:21 AM EDT Transaminitis POCT , URINE Routine 05/06/2025 2:57 PM EDT Depo-Provera contraceptive status HEPATITIS C AB W/REFL TO HCV RNA, QN, PCR Routine 02/11/2025 11:25 AM EDT Routine screening for STI (sexually transmitted infection) HIV 1/2 ANTIGEN/ANTIBODY, FOURTH GENERATION W/RFL Routine 02/11/2025 11:25 AM EDT Routine screening for STI (sexually transmitted infection) HM PAP/HPV Routine 09/29/2022 from Last 3 Months or Most Recently Relevant to Health Maintenance Results * (ABNORMAL) CBC auto differential (07/09/2025 11:13 AM EDT) White Blood Count 7.3 4.8 - 10.8 X10*3/uL [facility] Red Blood Count 5.03 4.20 - 5.50 X10*6/uL [facility] Hemoglobin 13.2 12.0 - 16.0 g/dl [facility] Hematocrit 41.1 37.0 - 47.0 % [facility] Mean Corpuscular Volume 81.7 80.0 - 98.0 fL [facility] Mean Corpuscular Hemoglobin 26.2(L) 27.0 - 33.0 pg [facility] Mean Corpuscular HGB Conc 32.1 31.0 - 35.0 g/dl [facility] Red Cell Distribution Width 13.0 11.0 - 16.0 % [facility] Platelet Count 423(H) 160 - 400 X10*3/uL [facility] Mean Platelet Volume 9.0(L) 9.4 - 12.3 fL [facility] Neutrophils Percent Auto 63.8 45 - 73 % [facility] Imm Gran Pct Auto 0.7(H) 0.0 - 0.4 % [facility] Lymphocytes Percent Auto 27.8 20 - 40 % [facility] Monocytes Percent Auto 7.0 2 - 11 % [facility] Eosinophils Percent Auto 0.3 0 - 4 % [facility] Basophils Percent Auto 0.4 0 - 2 % [facility] NRBC Pct Auto 0.0 0.0 - 0.2 /100WBC [facility] Neutrophils Absolute Auto 4.7 2.0 - 8.3 x10*3/uL [facility] Imm Gran Abs Auto 0.05(H) 0.00 - 0.03 X10*3/uL [facility] Lymphocytes Absolute Auto 2.0 1.2 - 4.9 X10*3/uL [facility] Monocytes Absolute Auto 0.5 0.1 - 1.2 X10*3/uL [facility] Eosinophils Absolute Auto 0.0 0.0 - 0.4 X10*3/uL [facility] Basophils Absolute Auto 0.0 0.0 - 0.2 X10*3/uL [facility] NRBC Abs Auto 0.000 0.0 - 0.012 X10*3/uL [facility] Blood Venous blood specimen / Unknown 07/09/2025 11:13 AM EDT 07/09/2025 1:16 PM EDT us Jayla Prather MD LAB BLOOD ORDERABLES Final Resul t [facility] [address] [place] [phone] * US Abdomen Comp w elastography (05/09/2025 8:21 AM EDT) Anatomical Region Laterality Modality Abdomen Ultrasound 05/09/2025 8:21 AM EDT Narrative 05/09/2025 8:53 AM EDT [address] [address] Ultrasound Report Signed Patient: Elina Alejandre MR# : [id number] : 1990 Acct:[id number] Age/Sex: 34 / F ADM Date: 05/09/25 Loc: HO.US Attending Dr: Jayla Prather MD Ordering Physician: Jayla Prather MD Date of Service: 05/09/25 Procedure(s): US abdomen comp w elastography Accession Number(s): [id number] cc: Jayla Prather MD EXAMINATION: US COMPLETE ABDOMEN WITH LIVER ELASTOGRAPHY CLINICAL INFORMATION: Transaminitis. COMPARISON: None available. TECHNIQUE: Real-time imaging of the abdominal viscera. Noninvasive ultrasound liver fibrosis assessment is performed using Corrine ElastPQ point quantification shear wave elastography (pSWE) with a C5-2 MHz transducer. Multiple elastography samples are obtained. FINDINGS: PANCREAS: The visualized pancreatic head and body are normal in appearance. The remainder of the pancreas is obscured from visualization by the overlying bowel gas. ABDOMINAL AORTA: No aortic aneurysm is seen. INFERIOR VENA CAVA: Visualized portions are normal. LIVER: Liver is mildly enlarged. Normal contour. Diffusely increased hepatic echogenicity in keeping with probable fatty infiltration. No intrahepatic biliary dilatation. The right lobe measures 18.2 cm in length. The left lobe measures 11.3 cm in length. Portal flow is towards the liver (hepatopetal). Shear wave liver elastography median stiffness is 1.53 m/s (reference: normal median stiffness is 1.3 m/s or less). IQR/median stiffness to assess sampling precision is 0.08 (reference: good quality data set is IQR/median stiffness of 0.15 or less). GALLBLADDER: The gallbladder is physiologically distended without evidence of stones, sludge, polyps, wall thickening or pericholecystic fluid. COMMON BILE DUCT: Normal in caliber measuring 0.5 cm in diameter. RIGHT KIDNEY: No hydronephrosis. No renal calculi or focal parenchymal lesions. The kidney measures 11.7 cm in maximum dimension. LEFT KIDNEY: No hydronephrosis. No renal calculi or focal parenchymal lesions. The kidney measures 11.4 cm in maximum dimension. SPLEEN: Unremarkable. The spleen measures 7.0 cm in maximum dimension. FREE FLUID: None seen. US/US abdomen comp w elastography IMPRESSION: 1. Liver is mildly enlarged and diffusely increased in echogenicity without suspicious lesion. Findings most likely relate to steatosis. 2. Liver elastography: In the absence of other known clinical signs, measurements rule out compensated advanced chronic liver disease. If there are known clinical signs, further testing may be needed for confirmation. 3. Normal-appearing gallbladder and bile ducts. 4. Remainder of the exam is normal. REFERENCE: Society of Radiologists in Ultrasound Liver Stiffness Thresholds (2020): LIVER STIFFNESS THRESHOLDS: *Liver Stiffness equal or less than 1.3 m/s: High probability of being normal. *Liver Stiffness less than 1.7 m/s: In the absence of other known clinical signs, rules out compensated advanced chronic liver disease. *Liver Stiffness 1.7-2.1 m/s: Suggestive of compensated advanced chronic liver disease but need further test for confirmation. *Liver Stiffness over 2.1 m/s: Rules in compensated advanced chronic liver disease. *Liver Stiffness over 2.4 m/s: Suggestive of clinically significant portal hypertension. QUALITY OF DATA SET: *IQR/Median value equal or less than 0.15 implies a quality data set. *IQR/Median value over 0.15 implies a poor quality data set. SIGNIFICANT CHANGE FROM PRIOR EXAM: Significant change if liver stiffness measurement is 10% or greater from prior exam. OTHER CONSIDERATIONS: The stage of liver fibrosis may be overestimated in the setting of acute hepatitis, liver inflammation, elevated liver function tests, hepatic vascular congestion, obstructive cholestasis, non-fasting state, and infiltrative diseases such as amyloidosis and lymphoma. In some patients with NAFLD, the liver stiffness thresholds for compensated advanced chronic liver disease may be lower. In causes other than viral hepatitis and NAFLD, liver stiffness thresholds are not well established. Electronically signed by: Brain Redman MD 05/09/2025 08:49 AM EDT Dictated By: Brain Redman MD Signed By: <Electronically signed by Brain Redman MD in OV> 05/09/25 0849 DD/ 0821 TD/TT: 05/09/25 0835 Tax Agent: Procedure Note Donotuseinterpreter, Image - 05/09/2025 [place] [address] Ultrasound Report Signed Patient: Elina Alejandre DMR# : [id number] : 1990Acct:[id number] Age/Sex: 34 / FADM Date: 05/09/25 Loc: HO.US Attending Dr: Jayla Prather MD Ordering Physician: Jayla Prather MD Date of Service: 05/09/25 Procedure(s): US abdomen comp w elastography Accession Number(s): [id number] cc: Jayla Prather MD EXAMINATION: US COMPLETE ABDOMEN WITH LIVER ELASTOGRAPHY CLINICAL INFORMATION: Transaminitis. COMPARISON: None available. TECHNIQUE: Real-time imaging of the abdominal viscera. Noninvasive ultrasound liver fibrosis assessment is performed using Corrine ElastPQ point quantification shear wave elastography (pSWE) with a C5-2 MHz transducer. Multiple elastography samples are obtained. FINDINGS: PANCREAS: The visualized pancreatic head and body are normal in appearance. The remainder of the pancreas is obscured from visualization by the overlying bowel gas. ABDOMINAL AORTA: No aortic aneurysm is seen. INFERIOR VENA CAVA: Visualized portions are normal. LIVER: Liver is mildly enlarged. Normal contour. Diffusely increased hepatic echogenicity in keeping with probable fatty infiltration. No intrahepatic biliary dilatation. The right lobe measures 18.2 cm in length. The left lobe measures 11.3 cm in length. Portal flow is towards the liver (hepatopetal). Shear wave liver elastography median stiffness is 1.53 m/s (reference: normal median stiffness is 1.3 m/s or less). IQR/median stiffness to assess sampling precision is 0.08 (reference: good quality data set is IQR/median stiffness of 0.15 or less). GALLBLADDER: The gallbladder is physiologically distended without evidence of stones, sludge, polyps, wall thickening or pericholecystic fluid. COMMON BILE DUCT: Normal in caliber measuring 0.5 cm in diameter. RIGHT KIDNEY: No hydronephrosis. No renal calculi or focal parenchymal lesions. The kidney measures 11.7 cm in maximum dimension. LEFT KIDNEY: No hydronephrosis. No renal calculi or focal parenchymal lesions. The kidney measures 11.4 cm in maximum dimension. SPLEEN: Unremarkable. The spleen measures 7.0 cm in maximum dimension. FREE FLUID: None seen. US/US abdomen comp w elastography IMPRESSION: 1. Liver is mildly enlarged and diffusely increased in echogenicity without suspicious lesion. Findings most likely relate to steatosis. 2. Liver elastography: In the absence of other known clinical signs, measurements rule out compensated advanced chronic liver disease. If there are known clinical signs, further testing may be needed for confirmation. 3. Normal-appearing gallbladder and bile ducts. 4. Remainder of the exam is normal. REFERENCE: Society of Radiologists in Ultrasound Liver Stiffness Thresholds (2020): LIVER STIFFNESS THRESHOLDS: *Liver Stiffness equal or less than 1.3 m/s: High probability of being normal. *Liver Stiffness less than 1.7 m/s: In the absence of other known clinical signs, rules out compensated advanced chronic liver disease. *Liver Stiffness 1.7-2.1 m/s: Suggestive of compensated advanced chronic liver disease but need further test for confirmation. *Liver Stiffness over 2.1 m/s: Rules in compensated advanced chronic liver disease. *Liver Stiffness over 2.4 m/s: Suggestive of clinically significant portal hypertension. QUALITY OF DATA SET: *IQR/Median value equal or less than 0.15 implies a quality data set. *IQR/Median value over 0.15 implies a poor quality data set. SIGNIFICANT CHANGE FROM PRIOR EXAM: Significant change if liver stiffness measurement is 10% or greater from prior exam. OTHER CONSIDERATIONS: The stage of liver fibrosis may be overestimated in the setting of acute hepatitis, liver inflammation, elevated liver function tests, hepatic vascular congestion, obstructive cholestasis, non-fasting state, and infiltrative diseases such as amyloidosis and lymphoma. In some patients with NAFLD, the liver stiffness thresholds for compensated advanced chronic liver disease may be lower. In causes other than viral hepatitis and NAFLD, liver stiffness thresholds are not well established. Electronically signed by: Brain Redman MD 05/09/2025 08:49 AM EDT Dictated By: Brain Redman MD Signed By: <Electronically signed by Brain Redman MD in OV> 05/09/25 0849 DD/ 0821 TD/TT: 05/09/25 0835 Tax Agent: Jayla Prather MD [facility] US PROCEDURES Final Result * POCT Urine (05/06/2025 2:57 PM EDT) Preg Test, Ur Negative Negative, Indeterminate, None Detected, Invalid, Specimen unsatisfactory for evaluation, Weakly Positive, 2+ QC Media Lot # [id number] Lot# Expiration Date [id number] Urine 05/06/2025 2:57 PM EDT Jayla Prather MD POINT OF CARE TEST ENTER/EDIT OR DERABLES Final Result * Hepatitis C Antibody with Reflex to HCV, RNA, Quantitative, Real-Time PCR (02/11/2025 11:25 AM EDT) Hepatitis C Antibody Nonreactive Nonreactive [facility] Comment:Antibodies to HCV no t detected; does not exclude early acuteHCV infection. Blood Venous blood specimen / Unknown 02/11/2025 11:25 AM EDT 02/11/2025 1:13 PM EDT Jayla Prather MD LAB BLOOD ORDERABLES Final Resul t Performing Organization Address [facility] Co de Phone Number [facility] [address] [place] [phone] * HIV-1/2 Antigen and Antibodies, Fourth Generation, with Reflexes (02/11/2025 11:25 AM EDT) HIV AB/AG Nonreactive Nonreactive [facility] Comment:HIV-1 p24 Ag and/or HIV-1/HIV-2 Ab not detected.A test result that is nonreactive does not exclude thepossibility of exposure to or infection with HIV-1 and/orHIV-2. Nonreactive results in this assay for individualswith prior exposure to HIV-1 and/or HIV-2 may be due toantigen and antibody levels that are below the limit ofdetection of this assay.The [id number] HIV Ag/Ab Combo assay result andsupplemental assay results should be interpreted inconjunction with the patient's clinical presentation,history and other laboratory results. If the results areinconsistent with clinical evidence, additional testing issuggested to confirm the result. Blood Venous blood specimen / Unknown 02/11/2025 11:25 AM EDT 02/11/2025 1:13 PM EDT Jayla Prather MD LAB BLOOD ORDERABLES Final Resul t Performing Organization Address [facility]/ZIP Co de Phone Number [facility] [address] [place] [phone] * Hm Pap Smear (09/29/2022) Pap Negative for intraephithelial lesion or malignancy Negative for intraephithelial lesion or malignancy, Other HPV Undetected Jayla Prather MD HEALTH MAINTENANCE Final Result from Last 3 Months or Most Recently Relevant to Health Maintenance Insurance * Guarantor: Elina Alejandre Account Type Relation to Patient Date of Phone Billing Address Personal/Family Self [address] [place] Care Teams Deskidding Machine Operator Relationship Specialty Start Date End Date Jayla Prather MD [address] [place] [address] [place], [place] PCP - General Family Medicine 10/23/18
--- OUTSIDE RECORDS SUMMARY | 2025-07-09 13:36 | XMS_ITS | Encounter Summary ---
Author Organization [employer] Address [address] [place] [address] [address] [place] [address] Care Team Providers Care Care Transport Nurse Name Role Phone Jayla Prather MD Primary Care Provider [phone] Reason for Referral * Consultation (Routine) - Closed Specialty Diagnoses / Procedures Referred By Contac t Referred To Contact Endocrinology Diagnoses Abnormal TSH Jayla Prather MD [address] [place] [address] Phone: tel: fax: [facility] Endocrinology [address] [place], [place] Phone: tel: fax: Referral ID Status Reason Start Date Expiration Date V isits Requested Visits Authorized [id number] Closed Specialty Services Required 04/02/2024 04/02/2025 1 1 Encounter Details Date Type Department Care Team (Late st Contact Info) Description 04/02/2024 Orders Only [facility] MEDICINE [address] [place], [place] [phone] Jayla Prather MD [address] [place], [place] [phone] Abnormal TSH (Primary Dx) Social History Tobacco Use Types Packs/Day Years Used Date Smoking Tobacco: Never Passive Smoke Exposure: Never Smokeless Tobacco: Never Alcohol Use Standard Drinks/Week Comments Never 0 (1 standard drink = 0.6 oz pur e alcohol) Housing Stability Answer Date Recorded What is your housing situation today? I have maren sing 08/07/[address] you li [...] Description 07/29/2025 10:30 AM EDT Clinical Support [facility] [address] [place] [phone] Scheduled Referrals Name Type Priority Associated Diagnoses Order Schedule Referral to Endocrinology Outpatient Referral Routine Abnormal TSH Expected: 04/02/2024 (Approximate), Expires: 04/02/2025 documented as of this encounter Visit Diagnoses Diagnosis Abnormal TSH- Primary documented in this encounter Care Teams Care Transport Nurse Relationship Specialty Start Date End Date Jayla Prather MD [address] [place] [address] PCP - General Family Medicine 10/23/18 documented as of this encounter
--- OUTSIDE RECORDS SUMMARY | 2025-07-09 13:36 | XMS_ITS | Clinical Summary ---
Author Organization [facility] Address [address] [place] [phone] Phone Care Team Providers Care Retail Sales Associate Seasonal Name Role Phone Unavailable Primary Care Provider [...] 2 - 2-dose childhood series) 02/19/2003 11/27/2002 HPV Vaccines (1 - 3-dose SCDM series) 2016 Influenza Vaccines (#1) 2025 COVID-19 Vaccine ( season) 2025 HIB Vaccines Completed 05/22/1991, 01/20/1991 IPV Vaccines Completed 01/20/1995, 12/23, 01/20/1991, Additional history exists MMR Vaccines Completed 01/20/1995, 05/22/1991 Hepatitis B Vaccines Completed 06/13/2003, 12/30/2002, 11/27/2002 Hepatitis A Vaccines Aged Out No long [...]
[2025-07-09 13:53] LABS: Alanine Aminotransferase 37 U/L (0-31); Albumin Level 5.0 g/dL (3.5-5.0); Alkaline Phosphatase 49 U/L (39-117); Anion Gap 11 (12-20); Aspartate Amino Transferase 37 U/L (5-31); Blood Urea Nitrogen 11 mg/dL (9-16); Calcium 9.6 mg/dL (8.4-10.2); Carbon Dioxide 28 mmol/L (22-29); Chloride 104 mmol/L (96-108); Estimated Glomerular Filt Rate > 60; Potassium 4.3 mmol/L (3.3-5.1); Sodium 139 mmol/L (135-145); Total Protein 8.3 g/dL (6.5-8.0)
== END 2025-07-09 10:46 | disposition home or self-care (01) ==
LOC: HO.HHCL 10:45
PROVIDERS: PCP Family Medicine; Visit Provider Family Medicine
DX: R03.0 Elevated blood-pressure reading, without diagnosis of hypertension (principal); R74.01 Elevation of levels of liver transaminase levels
CPT/HCPCS: 36415; 80048; 80076; 85025